=== PATIENT | male | born 1985 | race Caucasian/White ===

== ENCOUNTER → 2019-04-07 09:01 | Outpatient (CLI) | payer BC, SELFPAY ==
[2019-04-07 08:17] VITALS: BMI 25.8
[2019-04-07 11:32] LABS: Microalbumin:Creatinine Ratio 241.6 mg/g CRE (<30 mg/g CRE)
[2019-04-07 11:49] LABS: ALB/GLOB Ratio 1.3 RATIO (0.9-2.4); AST(SGOT) 23 U/L (15-37); Alanine Aminotransfer ALT/SGPT 37 U/L (16-61); Albumin, Serum 3.9 g/dL (3.2-5.0); Alkaline Phosphatase 73 U/L (45-117); Anion Gap 5 (5-15); BUN 12 mg/dL (7-18); BUN/Creat Ratio 15.9 RATIO (10-20); Calcium,Total 8.7 mg/dL (8.5-10.1); Chloride 106 mmol/L (98-107); Cholesterol 152 mg/dL (200); Creatinine, Serum 0.76 mg/dL (0.70-1.30); EST Glomerular Filtration Rate 128 mL/min (>60); Est Glom Filt Rate - Afr Amer 155 mL/min (>60); Globulin 3.1 g/dL (2.2-4.2); Glucose 218 mg/dL (74-106); High Density Lipoprotein 71 mg/dL; Sodium Level 138 mmol/L (136-145); Thyroid Stim Hormone (TSH) 1.75 uIU/mL (0.358-3.74); Triglycerides 48 mg/dL; Very Low Density Lipoprotein 10 mg/dL (5-40)
== END ==
LOC: LAB 09:07
PROVIDERS: Referring Provider Internal Medicine Endocrinology, Diabetes & Metabolism; Visit Provider Internal Medicine Endocrinology, Diabetes & Metabolism
DX: E11.9 Type 2 diabetes mellitus without complications (principal)
CPT/HCPCS: 36415; 80053; 80061; 82043; 82570; 84443

== ENCOUNTER → 2020-04-14 09:27 | Outpatient (CLI) | payer BC, SELFPAY ==
[2020-04-14 08:40] VITALS: BMI 23.6
[2020-04-14 12:39] LABS: Microalbumin:Creatinine Ratio 812.5 mg/g CRE (<30 mg/g CRE)
[2020-04-14 12:44] LABS: ALB/GLOB Ratio 1.3 RATIO (0.9-2.4); AST(SGOT) 18 U/L (15-37); Alanine Aminotransfer ALT/SGPT 32 U/L (16-61); Albumin, Serum 4.2 g/dL (3.2-5.0); Alkaline Phosphatase 85 U/L (45-117); Anion Gap 8 (5-15); BUN 15 mg/dL (7-18); Calcium,Total 9.6 mg/dL (8.5-10.1); Chloride 97 mmol/L (98-107); Cholesterol 200 mg/dL (200); Creatinine, Serum 0.94 mg/dL (0.70-1.30); EST Glomerular Filtration Rate 99 mL/min (>60); Est Glom Filt Rate - Afr Amer 120 mL/min (>60); Globulin 3.2 g/dL (2.2-4.2); Glucose 394 mg/dL (74-106); High Density Lipoprotein 68 mg/dL; Potassium 4.8 mmol/L (3.5-5.1); Protein, Total 7.4 g/dL (6.4-8.2); Sodium Level 132 mmol/L (136-145); Thyroid Stim Hormone (TSH) 1.14 uIU/mL (0.358-3.74); Triglycerides 169 mg/dL; Very Low Density Lipoprotein 34 mg/dL (5-40)
== END ==
PROVIDERS: Referring Provider Internal Medicine Endocrinology, Diabetes & Metabolism; Visit Provider Internal Medicine Endocrinology, Diabetes & Metabolism
DX: E10.9 Type 1 diabetes mellitus without complications (principal)
CPT/HCPCS: 36415; 80053; 80061; 82043; 82570; 84443

== ENCOUNTER 2021-06-23 15:30 | Outpatient (CLI) | payer BC, SELFPAY ==
[2021-06-23 16:43] LABS: Microalbumin:Creatinine Ratio 313.7 mg/g CRE (<30 mg/g CRE)
[2021-06-23 16:46] LABS: Vitamin D,25 Hydroxy 19.6 ng/mL
[2021-06-23 16:54] LABS: ALB/GLOB Ratio 1.4 RATIO (0.9-2.4); AST(SGOT) 12 U/L (15-37); Alanine Aminotransfer ALT/SGPT 27 U/L (16-61); Albumin, Serum 4.1 g/dL (3.2-5.0); Alkaline Phosphatase 73 U/L (45-117); Anion Gap 5 (5-15); BUN 8 mg/dL (7-18); BUN/Creat Ratio 10.3 RATIO (10-20); Calcium,Total 8.6 mg/dL (8.5-10.1); Chloride 105 mmol/L (98-107); Cholesterol 142 mg/dL (200); Creatinine, Serum 0.78 mg/dL (0.70-1.30); EST Glomerular Filtration Rate 121 mL/min (>60); Est Glom Filt Rate - Afr Amer 147 mL/min (>60); Globulin 2.9 g/dL (2.2-4.2); Glucose 252 mg/dL (74-106); High Density Lipoprotein 58 mg/dL; Potassium 3.5 mmol/L (3.5-5.1); Sodium Level 136 mmol/L (136-145); Triglycerides 49 mg/dL; Very Low Density Lipoprotein 10 mg/dL (5-40)
== END 2021-06-23 23:59 | disposition home or self-care (01) ==
PROVIDERS: Visit Provider Internal Medicine Endocrinology, Diabetes & Metabolism
DX: E10.65 Type 1 diabetes mellitus with hyperglycemia (principal); E55.9 Vitamin D deficiency, unspecified; Z96.41 Presence of insulin pump (external) (internal)
CPT/HCPCS: 36415; 80053; 80061; 82043; 82306; 82570; 84443

== ENCOUNTER → 2023-04-04 | Outpatient (CLI) | payer BC, SELFPAY ==
--- OUTSIDE RECORDS SUMMARY | 2023-04-04 16:08 | XMS RPT_ITS | CCD ---
Author Name Unknown Address [id number] [place] [address] Organization [facility] Care Team Providers Care Used Car Salesperson Name Role Phone VARINDER, GLYNN Unavailable Unavailable VARINDER, GLYNN Unavailable Unavailable [facility] Unavailable Unavailable VARINDER, GLYNN Unavailable Unavailable [facility] Unavailable Unavailable VARINDER, GLYNN Unavailable Unavailable VARINDER, GLYNN Unavailable Unavailable [facility] Unavailable Unavailable VARINDER, GLYNN Unavailable Unavailable VARINDER, GLYNN Unavailable Unavailable [facility] Unavailable Unavailable VARINDER, GLYNN Unavailable Unavailable VARINDER, GLYNN Unavailable Unavailable [facility] Unavailable Unavailable VARINDER, GLYNN Unavailable Unavailable VARINDER, GLYNN Unavailable Unavailable [facility] Unavailable Unavailable Hilary Barr DO Primary Care [facility] HILARY BARR Attending HILARY Long Primary Care HILARY Long Referring HILARY Long Primary Care HILARY Long Attending HILARY Long Primary Care FE Abreu Attending Unavailable FE MARC Primary Care Unavailable Fe Marc DO Primary Care Provider [phone] Allergies Allergy Classification Reported Allergen(s) Allergy Type Date of Onset Reaction(s) Facility (3 sources) egg (chicken) allergenic extract; Translations: [EGG EXTRACT] Drug Allergy 2 Other: See Comments [facility] (3 sources) Onion extract; Translations: [ONION] Drug Allergy 9 GI Upset, Diarrhea [facility] (1 source) Egg Allergy to substance 2 Unknown, Other [facility] (1 source) Onion extract Drug Allergy 9 Diarrhea, Nausea Only [facility] Medications Current Medications Medication Drug Class(es) Dates Sig (Normalized) Sig (Original) 12 hr buPROPion hydrochloride 150 mg extended release oral tablet (2 sources) Aminoketone Start: 02-19-2022 End: 05-20-2022 take 1 tablet by mouth twice daily buPROPion SR (WELLBUTRIN SR) 150 mg 12 hr tablet Indications: Smoker Take 1 tablet by mouth twice daily. 180 tablet 1 02/19/2022 05/20/2022 Active Completed/Discontinued Medications Medication Drug Class(es) Dates Sig (Normalized) Sig (Original) citalopram 40 mg oral tablet (5 sources) Serotonin Reuptake Inhibitor Start: 10-28-2017 take 1 tablet by mouth once daily citalopram (CELEXA) 40 mg tablet Indications: Type 1 diabetes mellitus with hyperglycemia, with long-term current use of insulin (HCC) Take 1 tablet by mouth once daily. 90 tablet 2 10/28/2017 Active Problems Active Problems Problem Classification Problem Date Documented Da te Episodic/Chronic Anxiety disorders (7 sources) Mixed anxiety and depressive disorder; Translations: [Other specified anxiety disorders] Onset: 02-07-2022 Chronic Diabetes mellitus with complications (9 sources) Type 1 diabetes mellitus; Translations: [Type 1 diabetes mellitus with hyperglycemia] Onset: 10-28-2017 10-28-2017 Chronic Mood disorders (4 sources) Depression; Translations: [Recurrent major depressive episodes, moderate ] Onset: 08-14-2022 Chronic Other hereditary and degenerative nervous system conditions (1 source) Restless legs syndrome; Translations: [Restless leg syndrome] Onset: 02-19-2022 Chronic Other hereditary and degenerative nervous system conditions (1 source) Restless legs; Translations: [Restless legs syndrome] Chronic Other nutritional; endocrine; and metabolic disorders (1 source) Overweight Onset: 10-28-2017 Chronic Other screening for suspected conditions (not mental disorders or infectious disease) (4 sources) Patient encounter status; Translations: [Encounter for screening for lipoid disorders] Onset: 01-30-2022 Episodic Substance-related disorders (3 sources) Nicotine dependence, unspecified, uncomplicated; Translations: [Smoker] Onset: 02-19-2022 Chronic Unclassified (1 source) Unknown / UNK(Unknown) Onset: 10-28-2017 Unclassified (2 sources) Annual Exam; Translations: [Annual Exam] Onset: 08-14-2022 Past or Other Problems Problem Classification Problem Date Documented Da te Episodic/Chronic Other nutritional; endocrine; and metabolic disorders (5 sources) Body mass index 25-29 - overweight; Translations: [Overweight] Onset: 10-28-2017 10-28-2017 Episodic Results Test Name Value Interpretation Reference Range Facil ity Vital Signs Date Time Vital Sign Value Performing Clinician Dacia woodall 08-14-2022 13:43-0400 Body height 172.7 cm Fe Marc Pull Work Phone: [email or web address] 08-14-2022 13:43-0400 Body mass index (BMI) [Ratio] 26.61 kg/m2 Fe Marc Pull Work Phone: [email or web address] 08-14-2022 13:43-0400 Body weight 79.38 kg Fe Marc Pull Work Phone: [email or web address] 08-14-2022 13:43-0400 Diastolic blood pressure 70 mm[Hg] Fegeorgia Marc DO Work Phone: [email or web address] 08-14-2022 13:43-0400 Heart rate 91 /min Fe Marc Pull Work Phone: [email or web address] 08-14-2022 13:43-0400 SaO2% (BldA) [Mass fraction] 97 % Fe Marc Pull Work Phone: [email or web address] 08-14-2022 13:43-0400 Systolic blood pressure 100 mm[Hg] Fe Marc Pull Work Phone: [facility] 02-19-2022 15:07-0500 Body height 172.7 cm TUNJI DO Work Phone: [facility] 02-19-2022 15:07-0500 Body temperature 98.4 [degF] ProZymerio DO Work Phone: [facility] 02-19-2022 15:07-0500 Body weight 76.2 kg Hilary Dick DO Work Phone: [facility] 02-19-2022 15:07-0500 Diastolic blood pressure 96 mm[Hg] ProZymerio DO Work Phone: [facility] 02-19-2022 15:07-0500 Heart rate 84 /min [place] Dick DO Work Phone: [facility] 02-19-2022 15:07-0500 SaO2% (BldA) [Mass fraction] 100 % [place] Dick DO Work Phone: [facility] 02-19-2022 15:07-0500 Systolic blood pressure 140 mm[Hg] [place] Dick DO Work Phone: [facility] 01-30-2022 10:53-0500 Body height 172.7 cm Hilary Dick DO Work Phone: [facility] 01-30-2022 10:53-0500 Body temperature 98.49 [degF] Hilary Dick DO Work Phone: [facility] 01-30-2022 10:53-0500 Body weight 76.66 kg Hilary Dick DO Work Phone: [facility] 01-30-2022 10:53-0500 Diastolic blood pressure 88 mm[Hg] [place] Dick DO Work Phone: [facility] 01-30-2022 10:53-0500 Heart rate 95 /min Hilary Dick DO Work Phone: [facility] 01-30-2022 10:53-0500 SaO2% (BldA) [Mass fraction] 100 % Hilary Dick DO Work Phone: [facility] 01-30-2022 10:53-0500 Systolic blood pressure 120 mm[Hg] [place] Dick DO Work Phone: [facility] Encounters Encounter Date Encounter Type Care Provider Facility Start: 08-14-2022 End: 08-14-2022 ambulatory [facility] Start: 08-14-2022 End: 08-14-2022 Office outpatient new 45 minutes Fe Marc DO Work Phone: [facility] Procedures Date Procedure Procedure Detail Performing Clinician Start: 09-22-2021 Hemoglobin A1c/Hemoglobin.total in Blood Glynn Hays MD Work Phone: Plan of Treatment Date Care Activity Detail Author Start: 09-12-2037 Zoster Vaccines (1 of 2) Zoster Vaccines (1 of 2) [facility] Start: 02-19-2023 ANNUAL PCP TEAM CHRONIC DISEASE VISIT ANNUAL PCP TEAM CHRONIC DISEASE VISIT [facility] Start: 02-13-2023 Depresssion Monitoring Depresssion Monitoring [facility] Start: 01-30-2023 ANNUAL PCP TEAM CHRONIC DISEASE VISIT ANNUAL PCP TEAM CHRONIC DISEASE VISIT [facility] Start: 01-30-2023 Hepatitis B surface antibody level LDL CHOLESTEROL [facility] Start: 11-09-2022 Influenza vaccination Influenza Vaccine (Season Ended) [facility] Start: 2022 End: 2022 Telemedicine consultation with patient 2022 3:30 PM EDT Telemedicine [facility] [address] [place] [phone] Fe Marc DO [address] [place] [address] [facility] Start: 03-25-2022 Hemoglobin A1c/Hemoglobin.total in Blood HBA1C [facility] Start: 02-27-2022 End: 04-29-2022 ALBUMIN/CREAT RATIO RND UR ALBUMIN/CREAT RATIO RND UR Lab Routine Type 1 diabetes mellitus with hyperglycemia, with long-term current use of insulin (HCC) Expected: 02/27/2022, Expires: 04/29/[address] [facility] Work Phone: Immunizations Immunization Date Immunization Notes Care Provider Fa cilirogelio 02-07-2017 influenza, injectabl e, quadrivalent, preservative free [place] Dick DO Work Phone: [facility] 02-07-2017 pneumococcal polysaccharide vaccine, 23 valent [place] Dick DO Work Phone: [facility] 02-07-2017 influenza virus vacc ine, unspecified formulation Fe Marc DO Work Phone: [facility] 11-16-2014 influenza, seasonal, injectable, preservative free Hilary Dick DO Work Phone: [facility] 03-11-2014 tetanus and diphther ia toxoids, adsorbed, preservative free, for adult use (2 Lf of tetanus toxoid and 2 Lf of diphtheria toxoid) Hilary Dick DO Work Phone: [facility] 01-21-2013 influenza, seasonal, injectable Hilary Dick DO Work Phone: [facility] 11-16-2011 influenza, seasonal, injectable [place] Dick DO Work Phone: [facility] 03-12-2001 hepatitis B vaccine, pediatric or pediatric/adolescent dosage Hilary Dick DO Work Phone: [facility] 10-11-2000 hepatitis B vaccine, pediatric or pediatric/adolescent dosage [place] Dick DO Work Phone: [facility] 09-09-2000 hepatitis B vaccine, pediatric or pediatric/adolescent dosage [place] Dick DO Work Phone: [facility] 09-09-2000 measles, mumps and rubella virus vaccine [place] Dick DO Work Phone: [facility] 10-04-1992 diphtheria, tetanus toxoids and acellular pertussis vaccine, unspecified [facility] 10-04-1992 trivalent poliovirus vaccine, live, [facility] Work [facility] 05-07-1989 haemophilus influenz ae type b vaccine, PRP-T conjugate [facility] DO Work Phone: [facility] 01-01-1989 diphtheria, tetanus toxoids and pertussis vaccine [place] Dick DO Work Phone: [facility] 01-01-1989 measles, mumps and rubella virus vaccine Hilary Dick DO Work Phone: [facility] 01-01-1989 trivalent poliovirus vaccine, live, oral [facility] Work Phone: [facility] 04-03-1988 diphtheria, tetanus toxoids and pertussis vaccine Hilary Dick DO Work Phone: [facility] 02-01-1988 diphtheria, tetanus toxoids and pertussis vaccine Hilary Dick DO Work Phone: [facility] 02-01-1988 trivalent poliovirus vaccine, live, oral Hilary Dick DO Work Phone: [facility] 1985 diphtheria, tetanus toxoids and pertussis vaccine Hilary Dick DO Work Phone: [facility] 1985 trivalent poliovirus vaccine, live, oral Hilary Dick DO Work Phone: [facility] Payers Date Payer Category Payer Private Health Insurance [id number] 2021 Private Health Insurance [id number] 1985 Unknown [id number] 1985 Unknown [id number] [id number] 1985 Unknown [id number] [id number] 1985 Unknown [id number] [id number] 1985 Unknown [id number] [id number] 1985 Unknown [id number] [id number] [id number] Unknown [id number] Social History Date Type Detail Facility Start: [facility] Start: 04-18-2001 History of tobacco use Cigarette Smo ker [facility] Start: 09-06-2021 End: 01-30-2022 Cigarettes smoked current (pack per day) - Reported 1.[address] [facility] Start: 01-30-2022 Tobacco use and exposure Smoke less tobacco non-user [facility] Start: 01-30-2022 Alcohol intake Ex-drinker (finding) [facility] Start: 01-30-2022 Alcohol Comment sober since 2019 [facility] Start: 1985 Sex Assigned At Not on file C [facility] Start: 01-20-2022 End: 08-14-2022 Exposure to SARS-CoV-2 (event) Not sure [facility] Start: 08-14-2022 Alcohol intake Lifetime non-d lisa (finding) [facility] Start: 09-06-2021 Tobacco use panel [facility] Medical Equipment Procedure Code Equipment Code Equipment Origin al Text Equipment Identifier Dates Start: 10-28-2017 End: 01-30-2022 Clinical Notes 05-13-2020 to 08-14-2022 Fe Marc, DO - 08/14/2022 2:00 PM EDTFmiguel a Barr, DO - 02/19/2022 3:11 PM ESTTelephone Encounter - Christine Garcia LPN - 02/08/2022 10:02 AM EST Note Date & Type Note Facility 08-14-2022 History of Presen t illness Narrative Images from the original note were not included. [facility] [phone] Visit type: New Patient Reason for Visit: Annual Exam (Pt very upset with previous pcp for giving to many meds for depression ) and Depression Assessment and Plan Diagnoses and all orders for this visit: Moderate episode of recurrent major depressive disorder (HCC) - escitalopram (Lexapro) 10 MG tablet; Take 1 tablet (10 mg) by mouth daily. Depression is not well controlled. We will switch back to Lexapro 10 mg daily. Might need to consider adding Abilify back as well. We will do this 1 medication at a time. He will follow-up with me in 4 weeks. No follow-ups on file. Subjective HPI He was seeing psych - lost insurance, started seeing Dick Started on prozac and wellbutrin Prozac was increased to 40 mg Then started on wellbutrin to help him quit smoking He is sleeping all of the time. Having nightmares. His says he is twitching in his sleep Works at [employer] Sold his house and moved in his mom - she has stage 4 CKD and MM, dementia, DM His most recent A1c is down 6.9 Hasn't had an eye exam Review of Systems Constitutional: Positive for fatigue. Negative for appetite change, chills and fever. Psychiatric/Behavioral: Positive for dysphoric mood. Negative for confusion, decreased concentration and sleep disturbance. The patient is not nervous/anxious. Allergies Allergen Reactions Egg Solids, Whole Unknown and Other Onion Diarrhea and Nausea Only Outpatient Medications Prior to Visit Medication Sig Dispense Refill insulin aspart (NovoLOG, Fiasp) 100 UNIT/ML patient supplied pump Inject under the skin continuous. FLUoxetine (PROzac) 40 MG capsule Take by mouth. FLUoxetine (PROzac) 20 MG capsule TAKE 1 CAPSULE BY MOUTH ONCE DAILY FOR 7 DAYS, THEN TAKE 2 CAPSULES ONCE DAILY Nirmatrelvir&Ritonavir 300/100 (Paxlovid) 20 x 150 MG & 10 x 100MG tablet therapy pack TAKE 3 TABLETS (TWO 150 MG NIRMATRELVIR AND ONE 100 MG RITONAVOR TABLETS) BY MOUTH EVERY 12 HOURS FOR 5 DAYS [YELLOW HALF=AM, BLUE HALF=PM] 30 each 0 No facility-administered medications prior to visit. Past Medical History: Diagnosis Date CHF (congestive heart failure) ([facility] ([facility]) Depression Social History Socioeconomic History Marital status: Tobacco Use Smoking status: Every Day Packs/day: 1.00 Types: Cigarettes Smokeless tobacco: Never Vaping Use Vaping Use: Never used Substance and Sexual Activity Alcohol use: Never Drug use: Never History reviewed. No pertinent surgical history. History reviewed. No pertinent surgical history. Family History Problem Relation Name Age of Onset Diabetes Mother Multiple myeloma Mother Kidney failure Mother No Known Problems Father Objective BP 100/70 Pulse 91 Ht 5' 8 (1.727 m) Wt 175 lb (79.4 kg) SpO2 97% BMI 26.61 kg/m Physical Exam Vitals and nursing note reviewed. Constitutional: General: He is not in acute distress. Appearance: Normal appearance. He is not ill-appearing. HENT: Head: Normocephalic and atraumatic. Right Ear: Tympanic membrane, ear canal and external ear normal. Left Ear: Tympanic membrane, ear canal and external ear normal. Nose: Nose normal. Mouth/Throat: Mouth: Mucous membranes are dry. Eyes: General: No scleral icterus. Right eye: No discharge. Left eye: No discharge. Extraocular Movements: Extraocular movements intact. Conjunctiva/sclera: Conjunctivae normal. Cardiovascular: Rate and Rhythm: Normal rate and regular rhythm. Pulses: Normal pulses. Heart sounds: Normal heart sounds. No murmur heard. No gallop. Pulmonary: Effort: Pulmonary effort is normal. No respiratory distress. Breath sounds: Normal breath sounds. No stridor. No wheezing, rhonchi or rales. Chest: Chest wall: No tenderness. Abdominal: General: Abdomen is flat. Bowel sounds are normal. There is no distension. Palpations: Abdomen is soft. There is no mass. Tenderness: There is no abdominal tenderness. There is no right CVA tenderness, left CVA tenderness, guarding or rebound. Hernia: No hernia is present. Musculoskeletal: General: Normal range of motion. Cervical back: Normal range of motion and neck supple. Right lower leg: No edema. Left lower leg: No edema. Skin: General: Skin is warm and dry. Findings: No rash. Neurological: General: No focal deficit present. Mental Status: He is alert and oriented to person, place, and time. Mental status is at baseline. Psychiatric: Mood and Affect: Mood normal. Behavior: Behavior normal. Thought Content: Thought content normal. Judgment: Judgment normal. Data Reviewed POCT: Labs: Imaging/Testing: Chart Clean Up: Medications Discontinued During This Encounter Medication Reason FLUoxetine (PROzac) 20 MG capsule Entered in error Nirmatrelvir&Ritonavir 300/100 (Paxlovid) 20 x 150 MG & 10 x 100MG tablet therapy pack Med list cleanup FLUoxetine (PROzac) 40 MG capsule Fe Marc DO 08/14/2022 3:44 PM documented in this encounter [facility] 02-27-2022 Note Patient Outreach ([facility] NYA CORDERO ([id number]) 1985 M Date Time Provider Department 02/27/22 HILARY BARR [facility] During your visit today, we recorded the following information about you: Allergies As of Date: 02/27/2022 Noted Allergy Reaction EGG EXTRACT 03/28/2021 14 - Other: See Comments ONION 01/06/2019 8 - GI Upset 6 - Diarrhea Date Reviewed: 02/19/2022 Reviewed by: Christine Garcia LPN - Fully Assessed Visit Diagnosis:Type 1 diabetes mellitus with hyperglycemia, with long-term current use of insulin (HCC) [E10.65] Order(s):ALBUMIN/CREAT RATIO RND UR [SQUACR] Order #: [id number] FUTURE HGB A1C [[id number]] Order #: [id number] FUTURE SCHEDULE LAB TESTING [[id number]] Order #: [id number] FUTURE Prescriptions as of 03/02/2022 - buPROPion SR (WELLBUTRIN SR) 150 mg 12 hr tablet Take 1 tablet by mouth twice daily. - rOPINIRole (REQUIP) 1 mg tablet Take 1 tablet by mouth daily at bedtime. - FLUoxetine (PROZAC) 40 mg capsule Take 1 capsule by mouth once daily. - FLUoxetine (PROZAC) 20 mg capsule Take 1 capsule by mouth once daily for 7 days, THEN 2 capsules once daily. - insulin glargine (LANTUS SOLOSTAR U-100 INSULIN) 100 unit/mL (3 mL) inpn Inject 30 Units subcutaneously once daily. - insulin lispro (HUMALOG KWIKPEN INSULIN) 200 unit/mL (3 mL) injection Patient injecting TID with meals, on sliding scale, max daily dose 50 units - escitalopram oxalate (LEXAPRO) 20 mg tablet Take 20 mg by mouth once daily. - flash glucose scanning reader (FREESTYLE ADELAIDA 14 DAY READER) [facility] Use as directed - flash glucose sensor (FREESTYLE ADELAIDA 14 DAY SENSOR) kit Use every 2 weeks as instructed - blood sugar diagnostic (ONETOUCH VERIO) test strip Test 4 times daily - citalopram (CELEXA) 40 mg tablet Take 1 tablet by mouth once daily. - Insulin [place], Disposable, (BD ULTRA-FINE ALEKSANDRA PEN NEEDLE) 32 gauge x 5/32 ndle 1 Each four times daily. Problem List As Of Date 02/27/2022 Noted Resolved Type 1 diabetes mellitus with hyperglycemia, wi* Overweight (BMI 25.0-29.9) [E66.3] 10/28/2017 Anxiety with depression [F41.8] 02/07/2022 Encounter Status:Closed by FERNANDO, PRODUSER on 03/02/22 [facility] 02-19-2022 Note HNO ID: [id number] Author: Hilary Barr DO Service: ? Author Type: Physician Type: Progress Notes Filed: 03/07/2022 6:21 PM Note Text: [facility] Sally Barr DO [address] [place] [address] Date of Evaluation: 02/19/2022 Patient Name: Nya Cordero : 1985 Chief Complaint: Patient presents with: Results: Blood work Anxiety: Follow up after taking prozac Nursing Intake: There are no exam notes on file for this visit. Subjective Mr. Cordero is a 36 year old male who presents with the following complaint(s): The history is provided by the patient. No russian language professor was used. Anxiety Pertinent negatives include no weakness. This is a chronic problem. The problem is unchanged. Treatments tried: prozac. The treatment provided mild relief. Review of Systems Constitutional: Negative for fatigue and unexpected weight change. HENT: Negative for nosebleeds. Eyes: Negative for redness and visual disturbance. Respiratory: Negative for apnea, cough and shortness of breath. Cardiovascular: Negative for chest pain, palpitations and leg swelling. Genitourinary: Negative for hematuria. Neurological: Negative for dizziness, weakness, light-headedness, numbness and headaches. Hematological: Does not bruise/bleed easily. Psychiatric/Behavioral: The patient is nervous/anxious. PAST MEDICAL HISTORY Diagnosis Date Diabetes 1.5, managed as type 1 (HCC) PAST SURGICAL HISTORY Procedure Laterality Date ADENOIDECTOMY SECONDARY AGE 14/> FAMILY HISTORY Problem Relation Age of Onset Diabetes Mother other (multiple myeloma) Mother No Known Problems Father Leukemia Brother COPD Maternal Grandmother Heart disease Maternal Grandmother No Known Problems Paternal Grandmother No Known Problems Paternal Grandfather Social History Tobacco Use Smoking status: Every Day Packs/day: 1.50 Types: Cigarettes Start date: 04/18/2001 Smokeless tobacco: Never Vaping Use Vaping Use: Never used Substance Use Topics Alcohol use: Not Currently Alcohol/week: 12.5 standard drinks Types: 3 Shots of liquor, 7 Standard drinks or equivalent, 3 Glasses of Wine (5oz) per week Comment: sober since 2019 Drug use: Never Current Outpatient Medications Medication Sig Dispense Refill FLUoxetine (PROZAC) 20 mg capsule Take 1 capsule by mouth once daily for 7 days, THEN 2 capsules once daily. 67 capsule 5 insulin lispro (HUMALOG KWIKPEN INSULIN) 200 unit/mL (3 mL) injection Patient injecting TID with meals, on sliding scale, max daily dose 50 units (Patient taking differently: Insulin pump. Sees endo) 12 Pen 1 insulin glargine (LANTUS SOLOSTAR U-100 INSULIN) 100 unit/mL (3 mL) inpn Inject 30 Units subcutaneously once daily. (Patient not taking: No sig reported) 10 Pen 1 escitalopram oxalate (LEXAPRO) 20 mg tablet Take 20 mg by mouth once daily. (Patient not taking: No sig reported) flash glucose scanning reader (FREESTYLE ADELAIDA 14 DAY READER) misc Use as directed (Patient not taking: No sig reported) 1 Each 0 flash glucose sensor (FREESTYLE ADELAIDA 14 DAY SENSOR) kit Use every 2 weeks as instructed (Patient not taking: No sig reported) 2 Kit 5 blood sugar diagnostic (ONETOUCH VERIO) test strip Test 4 times daily (Patient not taking: No sig reported) 150 Strip 5 citalopram (CELEXA) 40 mg tablet Take 1 tablet by mouth once daily. (Patient not taking: No sig reported) 90 tablet 2 Insulin [place], Disposable, (BD ULTRA-FINE ALEKSANDRA PEN NEEDLE) 32 gauge x 5/32 ndle 1 Each four times daily. 400 Each 2 No current facility-administered medications for this visit. I have confirmed and edited as necessary the past medical, family and social histories, HPI, and ROS obtained by others. Objective BP 140/96 Pulse 84 Temp 98.4 Ht 5' 8 (1.73m) Wt 168 lb (76.2kg) SpO2 100% BMI 25.55 kg/(m2). Physical Exam Vitals and nursing note reviewed. Constitutional: General: He is not in acute distress. Appearance: Normal appearance. He is well-developed. He is not ill-appearing. HENT: Head: Normocephalic. Right Ear: Tympanic membrane, ear canal and external ear normal. There is no impacted cerumen. Left Ear: Tympanic membrane, ear canal and external ear normal. There is no impacted cerumen. Nose: Nose normal. Mouth/Throat: Mouth: Mucous membranes are moist. Pharynx: Oropharynx is clear. Uvula midline. No oropharyngeal exudate or posterior oropharyngeal erythema. Eyes: General: Lids are normal. Vision grossly intact. Gaze aligned appropriately. No scleral icterus. Right eye: No discharge. Left eye: No discharge. Extraocular Movements: Extraocular movements intact. Conjunctiva/sclera: Conjunctivae normal. Pupils: Pupils are equal, round, and reactive to light. Neck: Thyroid: No thyroid mass, thyromegaly or thyroid (more content not included)... [facility] 02-19-2022 History of Presen t illness Narrative Images from the original note were not included. [facility] [address] [place] [address] Date of Evaluation: 02/19/2022 Patient Name: Nya Cordero : 1985 Chief Complaint: Patient presents with: Results: Blood work Anxiety: Follow up after taking prozac Nursing Intake: There are no exam notes on file for this visit. Subjective Mr. Cordero is a 36 year old male who presents with the following complaint(s): The history is provided by the patient. No russian language professor was used. Anxiety Pertinent negatives include no weakness. This is a chronic problem. The problem is unchanged. Treatments tried: prozac. The treatment provided mild relief. Review of Systems Constitutional: Negative for fatigue and unexpected weight change. HENT: Negative for nosebleeds. Eyes: Negative for redness and visual disturbance. Respiratory: Negative for apnea, cough and shortness of breath. Cardiovascular: Negative for chest pain, palpitations and leg swelling. Genitourinary: Negative for hematuria. Neurological: Negative for dizziness, weakness, light-headedness, numbness and headaches. Hematological: Does not bruise/bleed easily. Psychiatric/Behavioral: The patient is nervous/anxious. PAST MEDICAL HISTORY Diagnosis Date Diabetes 1.5, managed as type 1 (HCC) PAST SURGICAL HISTORY Procedure Laterality Date ADENOIDECTOMY SECONDARY AGE 14/> FAMILY HISTORY Problem Relation Age of Onset Diabetes Mother other (multiple myeloma) Mother No Known Problems Father Leukemia Brother COPD Maternal Grandmother Heart disease Maternal Grandmother No Known Problems Paternal Grandmother No Known Problems Paternal Grandfather Social History Tobacco Use Smoking status: Every Day Packs/day: 1.50 Types: Cigarettes Start date: 04/18/2001 Smokeless tobacco: Never Vaping Use Vaping Use: Never used Substance Use Topics Alcohol use: Not Currently Alcohol/week: 12.5 standard drinks Types: 3 Shots of liquor, 7 Standard drinks or equivalent, 3 Glasses of Wine (5oz) per week Comment: sober since 2019 Drug use: Never Current Outpatient Medications Medication Sig Dispense Refill FLUoxetine (PROZAC) 20 mg capsule Take 1 capsule by mouth once daily for 7 days, THEN 2 capsules once daily. 67 capsule 5 insulin lispro (HUMALOG KWIKPEN INSULIN) 200 unit/mL (3 mL) injection Patient injecting TID with meals, on sliding scale, max daily dose 50 units (Patient taking differently: Insulin pump. Sees endo) 12 Pen 1 insulin glargine (LANTUS SOLOSTAR U-100 INSULIN) 100 unit/mL (3 mL) inpn Inject 30 Units subcutaneously once daily. (Patient not taking: No sig reported) 10 Pen 1 escitalopram oxalate (LEXAPRO) 20 mg tablet Take 20 mg by mouth once daily. (Patient not taking: No sig reported) flash glucose scanning reader (FREESTYLE ADELAIDA 14 DAY READER) misc Use as directed (Patient not taking: No sig reported) 1 Each 0 flash glucose sensor (FREESTYLE ADELAIDA 14 DAY SENSOR) kit Use every 2 weeks as instructed (Patient not taking: No sig reported) 2 Kit 5 blood sugar diagnostic (ONETOUCH VERIO) test strip Test 4 times daily (Patient not taking: No sig reported) 150 Strip 5 citalopram (CELEXA) 40 mg tablet Take 1 tablet by mouth once daily. (Patient not taking: No sig reported) 90 tablet 2 Insulin [place], Disposable, (BD ULTRA-FINE ALEKSANDRA PEN NEEDLE) 32 gauge x 5/32 ndle 1 Each four times daily. 400 Each 2 No current facility-administered medications for this visit. I have confirmed and edited as necessary the past medical, family and social histories, HPI, and ROS obtained by others. Objective BP 140/96 Pulse 84 Temp 98.4 Ht 5' 8 (1.73m) Wt 168 lb (76.2kg) SpO2 100% BMI 25.55 kg/(m^2). Physical Exam Vitals and nursing note reviewed. Constitutional: General: He is not in acute distress. Appearance: Normal appearance. He is well-developed. He is not ill-appearing. HENT: Head: Normocephalic. Right Ear: Tympanic membrane, ear canal and external ear normal. There is no impacted cerumen. Left Ear: Tympanic membrane, ear canal and external ear normal. There is no impacted cerumen. Nose: Nose normal. Mouth/Throat: Mouth: Mucous membranes are moist. Pharynx: Oropharynx is clear. Uvula midline. No oropharyngeal exudate or posterior oropharyngeal erythema. Eyes: General: Lids are normal. Vision grossly intact. Gaze aligned appropriately. No scleral icterus. Right eye: No discharge. Left eye: No discharge. Extraocular Movements: Extraocular movements intact. Conjunctiva/sclera: Conjunctivae normal. Pupils: Pupils are equal, round, and reactive to light. Neck: Thyroid: No thyroid mass, thyromegaly or thyroid tenderness. Vascular: No carotid bruit. Trachea: Trachea and phonation normal. Cardiovascular: Rate and Rhythm: Normal rate and regular rhythm. Pulses: Normal pulses. Heart sounds: Normal heart sounds. Pulmonary: Effort: Pulmonary effort is normal. Breath sounds: Normal breath sounds. Abdominal: General: Abdomen is flat. Bowel sounds are normal. Palpations: Abdomen is soft. Musculoskeletal: General: Normal range of motion. Right shoulder: Normal. Left shoulder: Normal. Cervical back: Normal, full passive range of motion without pain and neck supple. No tenderness. No spinous process tenderness. Thoracic back: Normal. Lumbar back: Normal. Right knee: Normal. Left knee: Normal. Right lower leg: No edema. Left lower leg: No edema. Lymphadenopathy: Cervical: No cervical adenopathy. Skin: General: Skin is warm and dry. Neurological: General: No focal deficit present. Mental Status: He is alert and oriented to person, place, and time. Mental status is at baseline. Sensory: Sensation is intact. Motor: Motor function is intact. Psychiatric: Attention and Perception: Attention and perception normal. Mood and Affect: Mood normal. Speech: Speech normal. Behavior: Behavior normal. Thought Content: Thought content normal. Judgment: Judgment normal. Data Reviewed: Most recent labs ASSESSMENT/PLAN: 1. Anxiety with depression - ICD9: 300.4, ICD10: F41.8 (primary diagnosis) - Increase Fluoxetine - FLUOXETINE 40 MG CAPSULE 2. Type 1 diabetes mellitus with hyperglycemia, with long-term current use of insulin (HCC) - ICD9: 250.01, 790.29, ICD10: E10.65 - Managed by Endocrinology 3. Smoker - ICD9: 305.1, ICD10: F17.200 - Cessation encouraged. - Prescription for bupropion (Wellbutrin) given - BUPROPION HCL SR 150 MG TABLET,12 HR SUSTAINED-RELEASE 4. Restless leg syndrome - ICD9: 333.94, ICD10: G25.81 - Start Requip - ROPINIROLE 1 MG TABLET Return in about 3 weeks (around 03/12/2022). Hilary Barr DO Attestation: Scribe Statement: Kina Dorsey am scribing for, and in the presence of, Hilary Barr DO February 19, 2022 3:32 PM. Physician Statement: I, Hilary Barr DO, personally performed the services described in the documentation, as scribed by Jamee Dorsey in my presence, and it is both accurate and complete February 19, 2022 3:38 PM. documented in this encounter [facility] 02-08-2022 Miscellaneous Notes Formattin g of this note might be different from the original. 3rd attempt, tried cell phone number, said mailbox is full. Please mail letter to patient to have him call the office. Thank you. 2nd attempt, left message to call. Left message to call ----- Message from Hilary Barr DO sent at 02/06/2022 9:32 AM EST ----- Glucose too high increase lantus 2 units every night until fasting 130 and stop at that dose. Or see me and we will review. Recheck with glucose diary 7-10 days documented in this encounter [facility] 01-30-2022 Note HNO ID: [id number] Author: Hilary Barr DO Service: ? Author Type: Physician Type: Progress Notes Filed: 02/07/2022 6:16 PM Note Text: [facility] [place] Barr DO [address] [place] [address] Date of Evaluation: 01/30/2022 Patient Name: Nya Cordero : 1985 Chief Complaint: Patient presents with: Depression Anxiety New Patient review depression screening Nursing Intake: There are no exam notes on file for this visit. Subjective Mr. Cordero is a 36 year old male who presents with the following complaint(s): The history is provided by the patient. No russian language professor was used. Depression Pertinent negatives include no weakness. This is a chronic problem. The problem has been gradually worsening since onset. Anxiety Pertinent negatives include no weakness. This is a chronic problem. The problem has been gradually worsening since onset. Treatments tried: Lexapro. The treatment provided no relief. Review of Systems Constitutional: Negative for fatigue and unexpected weight change. HENT: Negative for nosebleeds. Eyes: Negative for redness and visual disturbance. Respiratory: Negative for apnea, cough and shortness of breath. Cardiovascular: Negative for chest pain, palpitations and leg swelling. Genitourinary: Negative for hematuria. Neurological: Negative for dizziness, weakness, light-headedness, numbness and headaches. Hematological: Does not bruise/bleed easily. Psychiatric/Behavioral: Positive for depression and dysphoric mood. The patient is nervous/anxious. PAST MEDICAL HISTORY Diagnosis Date Diabetes 1.5, managed as type 1 (HCC) PAST SURGICAL HISTORY Procedure Laterality Date ADENOIDECTOMY SECONDARY AGE 14/> FAMILY HISTORY Problem Relation Age of Onset Diabetes Mother other (multiple myeloma) Mother No Known Problems Father Leukemia Brother COPD Maternal Grandmother Heart disease Maternal Grandmother No Known Problems Paternal Grandmother No Known Problems Paternal Grandfather Social History Tobacco Use Smoking status: Every Day Packs/day: 1.50 Types: Cigarettes Start date: 04/18/2001 Smokeless tobacco: Never Vaping Use Vaping Use: Never used Substance Use Topics Alcohol use: Not Currently Alcohol/week: 12.5 standard drinks Types: 3 Shots of liquor, 7 Standard drinks or equivalent, 3 Glasses of Wine (5oz) per week Comment: sober since 2019 Drug use: Never Current Outpatient Medications Medication Sig Dispense Refill insulin lispro (HUMALOG KWIKPEN INSULIN) 200 unit/mL (3 mL) injection Patient injecting TID with meals, on sliding scale, max daily dose 50 units (Patient taking differently: Insulin pump. Sees endo) 12 Pen 1 FLUoxetine (PROZAC) 20 mg capsule Take 1 capsule by mouth once daily for 7 days, THEN 2 capsules once daily. 67 capsule 5 insulin glargine (LANTUS SOLOSTAR U-100 INSULIN) 100 unit/mL (3 mL) inpn Inject 30 Units subcutaneously once daily. (Patient not taking: Reported on 01/30/2022) 10 Pen 1 escitalopram oxalate (LEXAPRO) 20 mg tablet Take 20 mg by mouth once daily. (Patient not taking: Reported on 01/30/2022) flash glucose scanning reader (FREESTYLE ADELAIDA 14 DAY READER) misc Use as directed (Patient not taking: Reported on 01/30/2022) 1 Each 0 flash glucose sensor (FREESTYLE ADELAIDA 14 DAY SENSOR) kit Use every 2 weeks as instructed (Patient not taking: Reported on 01/30/2022) 2 Kit 5 blood sugar diagnostic (ONETOUCH VERIO) test strip Test 4 times daily (Patient not taking: Reported on 01/30/2022) 150 Strip 5 citalopram (CELEXA) 40 mg tablet Take 1 tablet by mouth once daily. (Patient not taking: No sig reported) 90 tablet 2 Insulin [place], Disposable, (BD ULTRA-FINE ALEKSANDRA PEN NEEDLE) 32 gauge x 5/32 ndle 1 Each four times daily. (Patient not taking: Reported on 01/30/2022) 400 Each 2 No current facility-administered medications for this visit. I have confirmed and edited as necessary the past medical, family and social histories, HPI, and ROS obtained by others. Objective BP 120/88 Pulse 95 Temp 98.5 Ht 5' 8 (1.73m) Wt 169 lb (76.7kg) SpO2 100% BMI 25.70 kg/(m2). Physical Exam Vitals and nursing note reviewed. Constitutional: General: He is not in acute distress. Appearance: Normal appearance. He is well-developed. He is not ill-appearing. HENT: Head: Normocephalic. Right Ear: Tympanic membrane, ear canal and external ear normal. There is no impacted cerumen. Left Ear: Tympanic membrane, ear canal and external ear normal. There is no impacted cerumen. Nose: Nose normal. Mouth/Throat: Mouth: Mucous membranes are moist. Pharynx: Oropharynx is clear. Uvula midline. No oropharyngeal exudate or posterior oropharyngeal erythema. Eyes: General: Lids are normal. Vision grossly intact. Gaze aligned appr (more content not included)... [facility] 01-30-2022 History of Presen t illness Narrative Images from the original note were not included. [facility] [address] [place] [address] Date of Evaluation: 01/30/2022 Patient Name: Nya Cordero : 1985 Chief Complaint: Patient presents with: Depression Anxiety New Patient review depression screening Nursing Intake: There are no exam notes on file for this visit. Subjective Mr. Cordero is a 36 year old male who presents with the following complaint(s): The history is provided by the patient. No russian language professor was used. Depression Pertinent negatives include no weakness. This is a chronic problem. The problem has been gradually worsening since onset. Anxiety Pertinent negatives include no weakness. This is a chronic problem. The problem has been gradually worsening since onset. Treatments tried: Lexapro. The treatment provided no relief. Review of Systems Constitutional: Negative for fatigue and unexpected weight change. HENT: Negative for nosebleeds. Eyes: Negative for redness and visual disturbance. Respiratory: Negative for apnea, cough and shortness of breath. Cardiovascular: Negative for chest pain, palpitations and leg swelling. Genitourinary: Negative for hematuria. Neurological: Negative for dizziness, weakness, light-headedness, numbness and headaches. Hematological: Does not bruise/bleed easily. Psychiatric/Behavioral: Positive for depression and dysphoric mood. The patient is nervous/anxious. PAST MEDICAL HISTORY Diagnosis Date Diabetes 1.5, managed as type 1 (HCC) PAST SURGICAL HISTORY Procedure Laterality Date ADENOIDECTOMY SECONDARY AGE 14/> FAMILY HISTORY Problem Relation Age of Onset Diabetes Mother other (multiple myeloma) Mother No Known Problems Father Leukemia Brother COPD Maternal Grandmother Heart disease Maternal Grandmother No Known Problems Paternal Grandmother No Known Problems Paternal Grandfather Social History Tobacco Use Smoking status: Every Day Packs/day: 1.50 Types: Cigarettes Start date: 04/18/2001 Smokeless tobacco: Never Vaping Use Vaping Use: Never used Substance Use Topics Alcohol use: Not Currently Alcohol/week: 12.5 standard drinks Types: 3 Shots of liquor, 7 Standard drinks or equivalent, 3 Glasses of Wine (5oz) per week Comment: sober since 2019 Drug use: Never Current Outpatient Medications Medication Sig Dispense Refill insulin lispro (HUMALOG KWIKPEN INSULIN) 200 unit/mL (3 mL) injection Patient injecting TID with meals, on sliding scale, max daily dose 50 units (Patient taking differently: Insulin pump. Sees endo) 12 Pen 1 FLUoxetine (PROZAC) 20 mg capsule Take 1 capsule by mouth once daily for 7 days, THEN 2 capsules once daily. 67 capsule 5 insulin glargine (LANTUS SOLOSTAR U-100 INSULIN) 100 unit/mL (3 mL) inpn Inject 30 Units subcutaneously once daily. (Patient not taking: Reported on 01/30/2022) 10 Pen 1 escitalopram oxalate (LEXAPRO) 20 mg tablet Take 20 mg by mouth once daily. (Patient not taking: Reported on 01/30/2022) flash glucose scanning reader (FREESTYLE ADELAIDA 14 DAY READER) [facility] [place] as directed (Patient not taking: Reported on 01/30/2022) 1 Each 0 flash glucose sensor (FREESTYLE ADELAIDA 14 DAY SENSOR) kit Use every 2 weeks as instructed (Patient not taking: Reported on 01/30/2022) 2 Kit 5 blood sugar diagnostic (ONETOUCH VERIO) test strip Test 4 times daily (Patient not taking: Reported on 01/30/2022) 150 Strip 5 citalopram (CELEXA) 40 mg tablet Take 1 tablet by mouth once daily. (Patient not taking: No sig reported) 90 tablet 2 Insulin [place], Disposable, (BD ULTRA-FINE ALEKSANDRA PEN NEEDLE) 32 gauge x 5/32 ndle 1 Each four times daily. (Patient not taking: Reported on 01/30/2022) 400 Each 2 No current facility-administered medications for this visit. I have confirmed and edited as necessary the past medical, family and social histories, HPI, and ROS obtained by others. Objective BP 120/88 Pulse 95 Temp 98.5 Ht 5' 8 (1.73m) Wt 169 lb (76.7kg) SpO2 100% BMI 25.70 kg/(m^2). Physical Exam Vitals and nursing note reviewed. Constitutional: General: He is not in acute distress. Appearance: Normal appearance. He is well-developed. He is not ill-appearing. HENT: Head: Normocephalic. Right Ear: Tympanic membrane, ear canal and external ear normal. There is no impacted cerumen. Left Ear: Tympanic membrane, ear canal and external ear normal. There is no impacted cerumen. Nose: Nose normal. Mouth/Throat: Mouth: Mucous membranes are moist. Pharynx: Oropharynx is clear. Uvula midline. No oropharyngeal exudate or posterior oropharyngeal erythema. Eyes: General: Lids are normal. Vision grossly intact. Gaze aligned appropriately. No scleral icterus. Right eye: No discharge. Left eye: No discharge. Extraocular Movements: Extraocular movements intact. Conjunctiva/sclera: Conjunctivae normal. Pupils: Pupils are equal, round, and reactive to light. Neck: Thyroid: No thyroid mass, thyromegaly or thyroid tenderness. Vascular: No carotid bruit. Trachea: Trachea and phonation normal. Cardiovascular: Rate and Rhythm: Normal rate and regular rhythm. Pulses: Normal pulses. Heart sounds: Normal heart sounds. Pulmonary: Effort: Pulmonary effort is normal. Breath sounds: Normal breath sounds. Abdominal: General: Abdomen is flat. Bowel sounds are normal. Palpations: Abdomen is soft. Musculoskeletal: General: Normal range of motion. Right shoulder: Normal. Left shoulder: Normal. Cervical back: Normal, full passive range of motion without pain and neck supple. No tenderness. No spinous process tenderness. Thoracic back: Normal. Lumbar back: Normal. Right knee: Normal. Left knee: Normal. Right lower leg: No edema. Left lower leg: No edema. Lymphadenopathy: Cervical: No cervical adenopathy. Skin: General: Skin is warm and dry. Neurological: General: No focal deficit present. Mental Status: He is alert and oriented to person, place, and time. Mental status is at baseline. Sensory: Sensation is intact. Motor: Motor function is intact. Psychiatric: Attention and Perception: Attention and perception normal. Mood and Affect: Mood normal. Speech: Speech normal. Behavior: Behavior normal. Thought Content: Thought content normal. Judgment: Judgment normal. Data Reviewed: No new labs ASSESSMENT/PLAN: 1. Type 1 diabetes mellitus with hyperglycemia, with long-term current use of insulin (HCC) - ICD9: 250.01, 790.29, ICD10: E10.65 (primary diagnosis) - Managed by Endocrinology 2. Anxiety with depression - ICD9: 300.4, ICD10: F41.8 - Discontinue Lexapro - Start Fluoxetine - FLUOXETINE 20 MG CAPSULE 3. Screening for hyperlipidemia - ICD9: V77.91, ICD10: Z13.220 - CBC + DIFF - COMP METABOLIC PANEL - LIPID PANEL BASIC - URINALYSIS, WITH MICROSCOPIC 4. Screening for thyroid disorder - ICD9: V77.0, ICD10: Z13.29 - TSH BLD Return in about 6 weeks (around 03/13/2022) for medication follow up. Hilary Barr DO Attestation: Scribe Statement: Kina Dorsey am scribing for, and in the presence of, Hilary Barr DO January 30, 2022 11:15 AM. Physician Statement: IHilary DO, personally performed the services described in the documentation, as scribed by Jamee Dorsey in my presence, and it is both accurate and complete January 30, 2022 11:36 AM. documented in this encounter [facility] 05-13-2020 Note Patient Outreach ([place] [facility]) NYA CORDERO ([id number]) 1985 M Date Time Provider Department 05/13/20 WEATHERS, SALOMON SPEAR During your visit today, we recorded the following information about you: Allergies As of Date: 05/13/2020 (No Known Allergies) Date Reviewed: 11/06/2018 Reviewed by: Marian Schwartz - Fully Assessed Order(s):SARS-COVID VACCINE 1ST DOSE APPT [[id number]] Order #: [id number] FUTURE Prescriptions as of 05/13/2020 Sig: INSULIN GLARGINE (U-100) 100 * Inject 30 Units subcutaneousl* INSULIN LISPRO (U-200) 200 UN* Patient injecting TID with me* ESCITALOPRAM 20 MG TABLET Take 20 mg by mouth once matthew* FLASH GLUCOSE SCANNING READER Use as directed FLASH GLUCOSE SENSOR KIT Use every 2 weeks as instruct* ONETOUCH VERIO TEST STRIPS USE ONE STRIP TO CHECK GLUCOS* BLOOD SUGAR DIAGNOSTIC STRIPS Test 4 times daily CITALOPRAM 40 MG TABLET Take 1 tablet by mouth once d* Patient not taking: Reported on 11/06/2018 PEN NEEDLE, DIABETIC 32 GAUGE* 1 Each four times daily. Problem List As Of Date 05/13/2020 Noted Resolved Type 1 diabetes mellitus with hyperglycemia, wi* Overweight (BMI 25.0-29.9) [E66.3] 10/28/2017 Encounter Status:Closed by MARLA KING on 05/16/20 [facility] Diagnosis Type 1 diabetes mellitus with hyperglycemia, with long-term current use of insulin (HCC) documented in this encounter [facility] note* Diagnosis Anxiety with depression- Primary Type 1 diabetes mellitus with hyperglycemia, with long-term current use of insulin (HCC) Smoker Tobacco use disorder Restless leg syndrome Restless legs syndrome (RLS) documented in this encounter [facility] note* Diagnosis Moderate episode of recurrent major depressive disorder (HCC)- Primary documented in this encounter [facility] Purpose Family History No Family History Records FoundNo Family History Records FoundNo Family History Records FoundNo Family History Records FoundNo Family History Records FoundNo Family History Records Found Advance Directives No Advanced Directives Records FoundNo Advanced Directives Records FoundNo Advanced Directives Records FoundNo Advanced Directives Records FoundNo Advanced Directives Records FoundNo Advanced Directives Records Found Additional Source Comments (unrecognized sect ion and content) No Status Records FoundNo Status Records FoundNo Status Records FoundNo Status Records FoundNo Status Records FoundNo Status Records Found INFORMATION SOURCE (unrecogn ized section and content) DATE CREATED AUTHOR AUTHOR'S ORGANIZ ATION 10/17/2019 [facility] ([place] DATE CREATED AUTHOR AUTHOR'S ORGANIZ ATION 04/12/2021 [facility] DATE CREATED AUTHOR AUTHOR'S ORGANIZ ATION 09/07/2021 [facility] DATE CREATED AUTHOR AUTHOR'S ORGANIZ ATION 03/08/2022 [facility] DATE CREATED AUTHOR AUTHOR'S ORGANIZ ATION 08/19/2022 [facility] Source Comments (unrecognize d section and content) In the event this informatio n is protected by the Federal Confidentiality of Alcohol and Drug Abuse Patient Records regulations: The Federal rules restrict any use of the information to criminally investigate or prosecute any alcohol or drug abuse patient.[facility] the event this information is protected by the Federal Confidentiality of Alcohol and Drug Abuse Patient Records regulations: The Federal rules restrict any use of the information to criminally investigate or prosecute any alcohol or drug abuse patient.[facility] the event this information is protected by the Federal Confidentiality of Alcohol and Drug Abuse Patient Records regulations: The Federal rules restrict any use of the information to criminally investigate or prosecute any alcohol or drug abuse patient.[facility] HospitalIn the event this information is protected by the Federal Confidentiality of Alcohol and Drug Abuse Patient Records regulations: The Federal rules restrict any use of the information to criminally investigate or prosecute any alcohol or drug abuse patient.[facility] HospitalIn the event this information is protected by the Federal Confidentiality of Alcohol and Drug Abuse Patient Records regulations: The Federal rules restrict any use of the information to criminally investigate or prosecute any alcohol or drug abuse patient.[facility] Care Teams (unrecognized sec tion and content) Used Car Salesperson Relationship Specialty Start Date End Date Hilary Barr, DO [address] [place], [place] [id number] PCP - General Family Medicine 01/30/22 Used Car Salesperson Relationship Specialty Start Date End Date Hilary Barr DO [address] [place] [address] PCP - General Family Medicine 01/30/22 Used Car Salesperson Relationship Specialty Start Date End Date Hilary Barr, DO [address] [place], [place] [address] PCP - General Family Medicine 01/30/22 Used Car Salesperson Relationship Specialty Start Date End Date Hilary Barr, DO [address] [place] [address] PCP - General Family Medicine 01/30/22 Used Car Salesperson Relationship Specialty Start Date End Date Fe Marc DO [address] [place] [address] PCP - General Internal Medicine 08/14/22 Reason for Visit (unrecogniz ed section and content) Reason Comments Results Letter to be mailed Reason Comments Results Blood work Anxiety Follow up after taki ng prozac Reason Comments Annual Exam Pt very upset with p [facility] pcp for giving to many meds for depression Depression FOR RECORDS PERTAINING TO PATIENTS WHO ARE OR HAVE BEEN ENROLLED IN A CHEMICAL DEPENDENCY/SUBSTANCEABUSE PROGRAM, SOME INFORMATION MAY BE OMITTED. This clinical summary was aggregated from multiple sources. Caution should be exercised in using it in the provision of clinical care. This summary normalizes information from multiple sources, and as a consequence, information in this document may materially change the coding, format and clinical context of patient data. In addition, data may be omitted in some cases. CLINICAL DECISIONS SHOULD BE BASED ON THE PRIMARY CLINICAL RECORDS. [email or web address] provides no warranty or guarantee of the accuracy or completeness of information in this document.
[2023-04-04 16:59] LABS: Microalbumin:Creatinine Ratio 471.8 mg/g CRE (<30 mg/g CRE)
[2023-04-04 17:12] LABS: ALB/GLOB Ratio 1.1 RATIO (0.9-2.4); AST(SGOT) 19 U/L (15-37); Alanine Aminotransfer ALT/SGPT 43 U/L (16-61); Albumin, Serum 3.8 g/dL (3.2-5.0); Alkaline Phosphatase 83 U/L (45-117); Anion Gap 4 (5-15); BUN 15 mg/dL (7-18); BUN/Creat Ratio 15.9 RATIO (10-20); Calcium,Total 9.6 mg/dL (8.5-10.1); Chloride 107 mmol/L (98-107); Cholesterol 172 mg/dL (200); Creatinine, Serum 0.94 mg/dL (0.70-1.30); EST Glomerular Filtration Rate 96 mL/min (>60); Est Glom Filt Rate - Afr Amer 117 mL/min (>60); Globulin 3.4 g/dL (2.2-4.2); Glucose 168 mg/dL (74-106); High Density Lipoprotein 65 mg/dL; Potassium 4.2 mmol/L (3.5-5.1); Protein, Total 7.2 g/dL (6.4-8.2); Sodium Level 140 mmol/L (136-145); Thyroid Stim Hormone (TSH) 2.12 uIU/mL (0.358-3.74); Triglycerides 72 mg/dL; Very Low Density Lipoprotein 14 mg/dL (5-40)
== END | disposition home or self-care (01) ==
LOC: LAB 15:50
PROVIDERS: Referring Provider Internal Medicine Endocrinology, Diabetes & Metabolism; Visit Provider Internal Medicine Endocrinology, Diabetes & Metabolism
DX: E10.9 Type 1 diabetes mellitus without complications (principal); Z96.41 Presence of insulin pump (external) (internal)
CPT/HCPCS: 36415; 80053; 80061; 82043; 82570; 84443

== ENCOUNTER → 2024-01-06 | Outpatient (CLI) | payer BC, SELFPAY ==
[2024-01-06 17:00] LABS: Microalbumin:Creatinine Ratio 439.2 mg/g CRE (<30 mg/g CRE)
[2024-01-06 17:28] LABS: ALB/GLOB Ratio 1.2 RATIO (0.9-2.4); AST(SGOT) 16 U/L (15-37); Alanine Aminotransfer ALT/SGPT 33 U/L (16-61); Albumin, Serum 3.8 g/dL (3.2-5.0); Alkaline Phosphatase 74 U/L (45-117); Anion Gap 2 (5-15); BUN 12 mg/dL (7-18); BUN/Creat Ratio 13.5 RATIO (10-20); Calcium,Total 9.1 mg/dL (8.5-10.1); Chloride 110 mmol/L (98-107); Cholesterol 144 mg/dL (200); Creatinine, Serum 0.89 mg/dL (0.70-1.30); EST Glomerular Filtration Rate 103 mL/min (>60); Est Glom Filt Rate - Afr Amer 125 mL/min (>60); Globulin 3.1 g/dL (2.2-4.2); Glucose 122 mg/dL (74-106); High Density Lipoprotein 67 mg/dL; Potassium 4.2 mmol/L (3.5-5.1); Protein, Total 6.9 g/dL (6.4-8.2); Sodium Level 140 mmol/L (136-145); Triglycerides 37 mg/dL; Very Low Density Lipoprotein 7 mg/dL (5-40)
--- OUTSIDE RECORDS SUMMARY | 2024-01-06 19:52 | XMS RPT_ITS | CCD ---
Author Organization [facility] Care Team Providers Care Associate Financial Analyst Name Role Phone VARINDER, GLYNN Unavailable Unavailable [...] Unavailable Unavailable Hilary Barr DO Primary Care [facility] er HILARY BARR Attending HILARY Long Primary Care HILARY Long Referring HILARY Long Primary Care HILARY Long Attending Calin BARR [place] Primary Care FE Abreu Attending Unavailable FE MARC Primary Care Unavailable Fe Marc DO Primary Care Provider Allergies Allergy Classification Reported Allergen(s) Allergy Type Date of Onset Reaction(s) Facility (3 sources) egg (chicken) allergenic extract; Translations: [EGG EXTRACT] Drug Allergy 2 Other: See Comments [facility] (3 sources) Onion extract; Translations: [ONION] Drug Allergy 9 GI Upset, Diarrhea [facility] (1 source) Egg Allergy to substance 2 Unknown, Other [facility] (1 source) Onion extract Drug Allergy 9 Diarrhea, Nausea Only [facility] Medications Current Medications Medication Drug Class(es) Dates Sig (Normalized) Sig (Original) 12 hr buPROPion hydrochloride 150 mg extended release oral tablet (2 sources) Aminoketone Start: 02-19-2022 End: 05-20-2022 take 1 tablet by mouth twice daily buPROPion SR (WELLBUTRIN SR) 150 mg 12 hr tablet Indications: Smoker Take 1 tablet by mouth twice daily. 180 tablet 1 02/19/2022 05/20/2022 Active Comment on above: Take 1 tablet by lola th twice daily. escitalopram 10 mg oral tablet (6 sources) Serotonin Reuptake Inhibitor Start: 08-14-2022 End: 02-10-2023 take 1 tablet by mouth once daily escitalopram (Lexapro) 10 MG tablet Indications: Moderate episode of recurrent major depressive disorder (HCC) Take 1 tablet (10 mg) by mouth daily. 30 tablet 5 08/14/2022 02/10/2023 Active take 1 tablet by mouth once matthew y escitalopram oxalate (LEXAPRO) 20 mg tablet Take 20 mg by mouth once daily. 0 Active Comment on above: Take 20 mg by mouth once daily. 3 ml insulin aspart, human 100 unt/ml cartridge (1 source) Insulin Analog insulin aspart ( NovoLOG, Fiasp) 100 UNIT/ML patient supplied pump Inject under the skin continuous. 0 Active Completed/Discontinued Medications Medication Drug Class(es) Dates Sig (Normalized) Sig (Original) citalopram 40 mg oral tablet (5 sources) Serotonin Reuptake Inhibitor Start: 10-28-2017 take 1 tablet by mouth once daily citalopram (CELEXA) 40 mg tablet Indications: Type 1 diabetes mellitus with hyperglycemia, with long-term current use of insulin (HCC) Take 1 tablet by mouth once daily. 90 tablet 2 10/28/2017 Active Comment on above: Take 1 tablet by lola th once daily. flash glucose scanning reader (FREESTYLE ADELAIDA 14 DAY READER) misc (5 sources) Start: 11-06-2018 flash glucose scanning reader (FREESTYLE ADELAIDA 14 DAY READER) misc Indications: Type 1 diabetes mellitus with hyperglycemia, with long-term current use of insulin (HCC) Use as directed 1 Each 0 11/06/2018 Active Comment on above: Use as directed flash glucose sensor (FREESTYLE ADELAIDA 14 DAY SENSOR) kit (5 sources) Start: 11-06-2018 flash glucose sensor (FREESTYLE ADELAIDA 14 DAY SENSOR) kit Indications: Type 1 diabetes mellitus with hyperglycemia, with long-term current use of insulin (HCC) Use every 2 weeks as instructed 2 Kit 5 11/06/2018 Active Comment on above: Use every 2 weeks as instructed FLUoxetine 40 mg oral capsule (9 sources) Serotonin Reuptake Inhibitor Start: 02-19-2022 End: 08-14-2022 FLUoxetine (PROzac) 40 MG capsule Take by mouth. 0 02/19/2022 08/14/2022 Discontinued Start: 01-30-2022 End: 08-14-2022 take 1 capsule by mouth once daily, then take 2 capsules by mouth once daily FLUoxetine (PROzac) 20 MG capsule TAKE 1 CAPSULE BY MOUTH ONCE DAILY FOR 7 DAYS, THEN TAKE 2 CAPSULES ONCE DAILY 0 01/30/2022 08/14/2022 Discontinued (Entered in error) Comment on above: Take 1 capsule by mo ut once daily for 7 days, THEN 2 capsules once daily. Take 1 capsule by mo ut once daily. sensor 3 ml insulin glargine 100 unt/ml pen injector (5 sources) Insulin Analog Start: 01-13-2019 insulin glargine (LANTUS SOLOSTAR U-100 INSULIN) 100 unit/mL (3 mL) inpn Indications: Type 1 diabetes mellitus with hyperglycemia, with long-term current use of insulin (HCC) Inject 30 Units subcutaneously once daily. 10 Pen 1 01/13/2019 Active Start: 01-13-2019 insulin glargi ne (LANTUS SOLOSTAR U-100 INSULIN) 100 unit/mL (3 mL) inpn Indications: Type 1 diabetes mellitus with hyperglycemia, with long-term current use of insulin (HCC) Inject 30 Units subcutaneously once daily. 10 Pen 1 01/13/2019 Active Comment on above: Inject 30 Units subc utaneously once daily. 3 ml insulin lispro 200 unt/ml pen injector (5 sources) Insulin Analog Start: 01-14-20 19 insulin lispro (HUMALOG KWIKPEN INSULIN) 200 unit/mL (3 mL) injection Indications: Type 1 diabetes mellitus with hyperglycemia, with long-term current use of insulin (HCC) Patient injecting TID with meals, on sliding scale, max daily dose 50 units 12 Pen 1 01/13/2019 Active Comment on above: Patient injecting TI D with meals, on sliding scale, max daily dose 50 units Nirmatrelvir&Ritonav ir 300/100 (Paxlovid) 20 x 150 MG & 10 x 100MG tablet therapy pack (1 source) Start: 09-07-19 End: 08-15-19 Nirmatrelvir&Ritonav ir 300/100 (Paxlovid) 20 x 150 MG & 10 x 100MG tablet therapy pack TAKE 3 TABLETS (TWO 150 MG NIRMATRELVIR AND ONE 100 MG RITONAVOR TABLETS) BY MOUTH EVERY 12 HOURS FOR 5 DAYS [YELLOW HALF=AM, BLUE HALF=PM] 30 each 0 09/06/2021 08/14/2022 Discontinued (Med list cleanup) rOPINIRole 1 mg oral tablet (2 sources) Nonergot Dopamine Agonist Start: 02-20-20 take 1 tablet by mouth once daily at bedtime rOPINIRole (REQUIP) 1 mg tablet Indications: Restless leg syndrome Take 1 tablet by mouth daily at bedtime. 30 tablet 5 02/19/2022 Active Comment on above: Take 1 tablet by lola th daily at bedtime. 24 hr venlafaxine 150 mg extended release oral capsule (1 source) Serotonin and Norepinephrine Reuptake Inhibitor Start: 06-24-19 End: 01-31-20 take 1 capsule by mouth every twenty-four hours venlafaxine ER (EFFEXOR XR) 150 mg 24 hr capsule Take by mouth. 0 06/23/2021 01/30/2022 Discontinued (Course of therapy completed) Comment on above: Take by mouth. Problems Active Problems Problem Classification Problem Date [...] Name Value Interpretation Reference Range Facil ity Office Visiton 08-14-2022 Follow-up visit [id number] Nya Marquez 1985 M Date Provider Department Center 08/14/2022 FE HOFF [facility] Family History Problem Relation Age of Onset Diabetes Mother Multiple myeloma Mother Kidney failure Mother No Known Problems Father Family Status - Relation Status Age at Mother Alive Father Level of Service:28600 CA OFFICE/OUTPATIENT NEW MODERATE MDM 45-59 MINUTES Reason for Visit and Comments: Annual Exam [83] - Pt very upset with previous pcp for giving to many meds for depression Depression [32] Normal [facility] Progress Noteon 08-14-2022 Progress Note [facility] [address] [place] [address] Visit type: New Patient Reason for [...] seeing psych - lost insurance, started seeing Momo Started on prozac and wellbutrin Prozac was increased to 40 mg Then started on wellbutrin to help him quit smoking He is sleeping all of the time. Having nightmares. His says he is twitching in his sleep Works at [email or web address] Sold his house and moved in his mom - she has stage 4 CKD and MM, dementia, DM His most recent A1c is down 6.9 Hasn't had an eye exam Review of Systems Constitutional: Positive for fatigue. Negative for appetite change, chills and fever. Psychiatric/Behaviora l: Positive for dysphoric mood. Negative for confusion, [...] DAYS, THEN TAKE 2 CAPSULES ONCE DAILY Nirmatrelvir&Ritonavi r 300/100 (Paxlovid) 20 x 150 MG & 10 x 100MG tablet therapy pack TAKE 3 TABLETS (TWO 150 MG NIRMATRELVIR AND ONE 100 MG RITONAVOR TABLETS) BY MOUTH EVERY 12 HOURS FOR 5 DAYS [YELLOW HALF=AM, BLUE HALF=PM] 30 each 0 No facility-administered medications prior to visit. Past Medical History: Diagnosis Date CHF (congestive heart failure) ([facility] ([facility]) Depression Social History Socioeconomic History Marital status: [...] lb (79.4 kg) SpO2 97% BMI 26.61 kg/m? Physical Exam Vitals and nursing note reviewed. [...] (PROzac) 20 MG capsule Entered in error Nirmatrelvir&Ritonavi r 300/100 (Paxlovid) 20 x 150 MG & 10 x 100MG tablet th (more content not included)... [facility] Office Visit (FPDOYL ) NYA MARQUEZ ([id number]) 1985 M Date Time Provider Department 02/19/22 3:30 PM HILARY BARR During your visit today, we recorded the following information about you: Temperature Pulse Blood pressure Weight 98.4 degrees 84/minute 140/96 76.2 kg Height 1.727 m Hilary Barr DO 03/07/2022 6:21 PM Signed [facility] [place] Hilarykimberli Barr, DO [address] [place] [address] Date of Evaluation: 02/19/2022 Patient Name: Nya Marquez : 1985 Chief Complaint: Patient presents with: Results: Blood work Anxiety: Follow up after taking prozac Nursing Intake: There are no exam notes on file for this visit. Subjective Mr. Marquez is a 36 year old male who presents with the following complaint(s): The history is provided by the patient. No conference interpreter was used. Anxiety Pertinent negatives include no [...] and headaches. Hematological: Does not bruise/bleed easily. Psychiatric/Behaviora l: The patient is nervous/anxious. PAST MEDICAL HISTORY [...] scanning reader (FREESTYLE ADELAIDA 14 DAY READER) [facility] Use as directed (Patient not taking: No [...] No sig reported) 90 tablet 2 Insulin [place], Disposable, (BD ULTRA-FINE ALEKSANDRA PEN NEEDLE) 32 [...] are normal. Vision grossly intact. Gaze aligned appropria (more content not included)... Normal [facility] 02-06-2022 [facility] Telephone (SCOTTYL) NYA MARQUEZ ([id number]) 1985 M Date Time Provider Department 02/06/22 HILARY BARR During your visit today, we recorded the following information about you: Christine Garcia LPN 02/06/2022 10:53 AM Signed ----- Message from Hilary Barr DO sent at 02/06/2022 9:32 AM EST ----- Glucose too high increase lantus 2 units every night until fasting 130 and stop at that dose. Or see me and we will review. Recheck with glucose diary 7-10 days Christine Garcia LPN 02/06/2022 11:16 AM Signed Left message to call Tanja Tanner LPN 02/07/2022 1:32 PM Signed 2nd attempt, left message to call. Christine Garcia LPN 02/08/2022 10:03 AM Signed 3rd attempt, tried cell phone number, said mailbox is full. Please mail letter to patient to have him call the office. Thank you. Beverly Cochran 02/08/2022 3:09 PM Signed Pt returned the call. Scheduled pt for 02/19/22 10 days appt. Pt also had some medication side effects he wanted to talk to someone about. Transferred to nurse line. Nurse line did not receive the call. Allergies As of Date: 02/06/2022 (No Known Allergies) Date Reviewed: 01/30/2022 Reviewed by: Christine Garcia LPN - Fully Assessed Reason for Visit: Results [95] Cmt: Letter to be mailed Prescriptions as of 02/08/2022 - FLUoxetine (PROZAC) 20 mg capsule Take [...] scanning reader (FREESTYLE ADELAIDA 14 DAY READER) [facility] Use as directed - flash glucose sensor (FREESTYLE ADELAIDA 14 DAY SENSOR) kit Use every 2 weeks as instructed - blood sugar diagnostic (ONETOUCH VERIO) test strip Test 4 times daily - citalopram (CELEXA) 40 mg tablet Take 1 tablet by mouth once daily. - Insulin [place], Disposable, (BD ULTRA-FINE ALEKSANDRA PEN NEEDLE) 32 gauge x 5/32 ndle 1 Each four times daily. Problem List As Of Date 02/06/2022 Noted Resolved Type 1 diabetes mellitus with hyperglycemia, wi* Overweight (BMI 25.0-29.9) [E66.3] 10/28/2017 Encounter Status:Closed by CHRISTINE GARCIA on 02/08/22 [facility] CBC W Auto Differential pane l (Bld)on 01-30-2022 Basophils (Bld) [#/Vol] 0.06 10*3/uL <0.11 k/uL [facility] Basophils/100 WBC (Bld) 1.0 % [facility] Differential cell count method Nom (Bld) Auto [facility] Eosinophils (Bld) [#/Vol] 0.15 10*3/uL <0.46 k/uL [facility] Eosinophils/100 WBC (Bld) 2.4 % [facility] Erythrocyte distribution width (RBC) [Ratio] 13.0 % 11.5 - 15.0 % [facility] Hematocrit (Bld) [Volume fraction] 47.1 % 39.0 - 51.0 % [facility] Hemoglobin (Bld) [Mass/Vol] 16.2 g/dL 13.0 - 17.0 g/dL [facility] Immature granulocytes (Bld) [#/Vol] <0.10 k/uL [facility] Immature granulocytes/100 WBC (Bld) 0.3 % [facility] Lymphocytes (Bld) [#/Vol] 1.11 10*3/uL 1.00 - 4.00 k/uL [facility] Lymphocytes/100 WBC (Bld) 18.0 % [facility] MCH (RBC) [Entitic mass] 30.1 pg 26.0 - 34.0 pg [facility] MCHC (RBC) [Mass/Vol] 34.4 g/dL 30.5 - 36.0 g/dL [facility] MCV (RBC) [Entitic vol] 87.4 fL 80.0 - 100.0 fL [facility] Monocytes (Bld) [#/Vol] 0.67 10*3/uL <0.87 k/uL [facility] Monocytes/100 WBC (Bld) 10.9 % [facility] Neutrophils (Bld) [#/Vol] 4.14 10*3/uL 1.45 - 7.50 k/uL [facility] Neutrophils/100 WBC (Bld) 67.4 % [facility] Nucleated RBC (Bld) [#/Vol] <0.01 k/uL [facility] Nucleated RBC/100 WBC (Bld) [Ratio] 0.0 /100 WBC [facility] Platelet mean volume (Bld) [Entitic vol] 10.1 fL 9.0 - 12.7 fL [facility] Platelets (Bld) [#/Vol] 260 10*3/uL 150 - 400 k/uL [facility] RBC (Bld) [#/Vol] 5.39 10*6/uL 4.20 - 6.0 0 m/uL [facility] WBC (Bld) [#/Vol] 6.15 10*3/uL 3.70 - 11. 00 k/uL [facility] Basophils (Bld) [#/Vol] 0.06 10*3/uL Normal <0.11 [facility] Comment on above: Order Comment: Speci men Type: BLOOD SPECIMEN Ordering Facility: [facility] Address: [address] [place] [address] Performed By: #### 2 4323-8, 38858-0, 3015-3 #### [facility] CLIA [id number] [address] [place] Basophils/100 WBC (Bld) 1.0 % Normal [facility] Comment on above: Order Comment: Speci men Type: BLOOD SPECIMEN Ordering Facility: [facility] Address: [address] [place] [address] Performed By: #### 2 4323-8, 92609-6, 3 #### [facility] CLIA [id number] [address] [place] Differential cell count method Nom (Bld) Auto Normal [facility] Comment on above: Order Comment: Speci men Type: BLOOD SPECIMEN Ordering Facility: [facility] Address: [address] [place] [address] Performed By: #### 2 4323-8, 85083-3, 3 #### [facility] CLIA [id number] [address] [place] Eosinophils (Bld) [#/Vol] 0.15 10*3/uL Normal <0.46 [facility] Comment on above: Order Comment: Speci men Type: BLOOD SPECIMEN Ordering Facility: [facility] Address: [address] [place] [address] Performed By: #### 2 4323-8, 55425-6, 3015-3 #### [facility] CLIA [id number] [address] [place] Eosinophils/100 WBC (Bld) 2.4 % Normal [facility] Comment on above: Order Comment: Speci men Type: BLOOD SPECIMEN Ordering Facility: [facility] Address: [address] [place] [address] Performed By: #### 2 4323-8, 05070-5, 6-3 #### [facility] CLIA [id number] [address] [place] OF [facility] Erythrocyte distribution width (RBC) [Ratio] 13.0 % Normal 11.5-15.0 [facility] Comment on above: Order Comment: Speci men Type: BLOOD SPECIMEN Ordering Facility: [facility] Address: [address] [address] Performed By: #### 2 4323-8, 28589-3, 3015-3 #### [facility] CLIA [id number] [address] [place] Hematocrit (Bld) [Volume fraction] 47.1 % Normal 39.0-51.0 [facility] Comment on above: Order Comment: Speci men Type: BLOOD SPECIMEN Ordering Facility: [facility] Address: [address] [address] Performed By: #### 2 4323-8, 63289-2, 3015-3 #### [facility] CLIA [id number] [address] [place] Hemoglobin (Bld) [Mass/Vol] 16.2 g/dL Normal 13.0-17.0 [facility] Comment on above: Order Comment: Speci men Type: BLOOD SPECIMEN Ordering Facility: [facility] Address: [address] [address] Performed By: #### 2 4323-8, 89201-0, 3015-3 #### [facility] CLIA [id number] [address] [place] Immature granulocytes (Bld) [#/Vol] 10*3/uL Normal <0.10 [facility] Comment on above: Order Comment: Speci men Type: BLOOD SPECIMEN Ordering Facility: [facility] Address: [address] [address] Performed By: #### 2 4323-8, 48057-9, 6-3 #### [facility] CLIA [id number] [address] OF [facility] Immature granulocytes/100 WBC (Bld) 0.3 % Normal [facility] Comment on above: Order Comment: Speci men Type: BLOOD SPECIMEN Ordering Facility: [facility] Address: [address] [place] [address] Performed By: #### 2 4323-8, 60061-5, 6-3 #### [facility] CLIA [id number] [address] [place] Lymphocytes (Bld) [#/Vol] 1.11 10*3/uL Normal 1.00-4.00 [facility] Comment on above: Order Comment: Speci men Type: BLOOD SPECIMEN Ordering Facility: [facility] Address: [address] [place] [address] Performed By: #### 2 4323-8, 39513-1, 3015-3 #### [facility] CLIA [id number] [address] [place] [address] Lymphocytes/100 WBC (Bld) 18.0 % Normal [facility] Comment on above: Order Comment: Speci men Type: BLOOD SPECIMEN Ordering Facility: [facility] Address: [address] [place] [address] Performed By: #### 2 4323-8, 87470-6, 6-3 #### [facility] CLIA [id number] [address] STATES [facility] MCH (RBC) [Entitic mass] 30.1 pg Normal 26.0-34.0 [facility] Comment on above: Order Comment: Speci men Type: BLOOD SPECIMEN Ordering Facility: [facility] Address: [address] [place] [address] Performed By: #### 2 4323-8, 49337-2, 6-3 #### [facility] CLIA [id number] [address] MCHC (RBC) [Mass/Vol] 34.4 g/dL Normal 30.5-36.0 [facility] Comment on above: Order Comment: Speci men Type: BLOOD SPECIMEN Ordering Facility: [facility] Address: [address] [place] [address] Performed By: #### 2 4323-8, 32006-4, 3015-3 #### [facility] CLIA [id number] [address] MCV (RBC) [Entitic vol] 87.4 fL Normal 80.0-100.0 [facility] Comment on above: Order Comment: Speci men Type: BLOOD SPECIMEN Ordering Facility: [facility] Address: [address] [place] [address] Performed By: #### 2 4323-8, 04864-2, 3 #### [facility] CLIA [id number] [address] [place] Monocytes (Bld) [#/Vol] 0.67 10*3/uL Normal <0.87 [facility] Comment on above: Order Comment: Speci men Type: BLOOD SPECIMEN Ordering Facility: [facility] Address: [address] [place] [address] Performed By: #### 2 4323-8, 75226-7, 3 #### [facility] CLIA [id number] [address] OF [facility] Monocytes/100 WBC (Bld) 10.9 % Normal [facility] Comment on above: Order Comment: Speci men Type: BLOOD SPECIMEN Ordering Facility: [facility] Address: [address] [place] [address] Performed By: #### 2 4323-8, 16729-3, 3015-3 #### [facility] CLIA [id number] [address] [place] Neutrophils (Bld) [#/Vol] 4.14 10*3/uL Normal 1.45-7.50 [facility] Comment on above: Order Comment: Speci men Type: BLOOD SPECIMEN Ordering Facility: [facility] Address: [address] [address] Performed By: #### 2 4323-8, 06517-8, 3015-3 #### [facility] CLIA [id number] [address] Neutrophils/100 WBC (Bld) 67.4 % Normal [facility] Comment on above: Order Comment: Speci men Type: BLOOD SPECIMEN Ordering Facility: [facility] Address: [address] [address] Performed By: #### 2 4323-8, 29979-6, 3015-3 #### [facility] CLIA [id number] [address] Nucleated RBC (Bld) [#/Vol] 10*3/uL Normal <0.01 [facility] Comment on above: Order Comment: Speci men Type: BLOOD SPECIMEN Ordering Facility: [facility] Address: [address] [address] Performed By: #### 2 4323-8, 87024-3, 3 #### [facility] CLIA [id number] [address] Nucleated RBC/100 WBC (Bld) [Ratio] 0.0 /100 WBC Normal [facility] Comment on above: Order Comment: Speci men Type: BLOOD SPECIMEN Ordering Facility: [facility] Address: [address] [address] Performed By: #### 2 4323-8, 14683-5, 3 #### [facility] CLIA [id number] [address] Platelet mean volume (Bld) [Entitic vol] 10.1 fL Normal 9.0-12.7 [facility] Comment on above: Order Comment: Speci men Type: BLOOD SPECIMEN Ordering Facility: [facility] Address: [address] [address] Performed By: #### 2 4323-8, 22557-9, 3015-3 #### [facility] CLIA [id number] [address] [place] Platelets (Bld) [#/Vol] 260 10*3/uL Normal 150-400 [facility] Comment on above: Order Comment: Speci men Type: BLOOD SPECIMEN Ordering Facility: [facility] Address: [address] [place] [address] Performed By: #### 2 4323-8, 64263-8, 3016-3 #### [facility] CLIA [id number] [address] OF [facility] RBC (Bld) [#/Vol] 5.39 10*6/uL Normal 4.20-6.00 [facility] Comment on above: Order Comment: Speci men Type: BLOOD SPECIMEN Ordering Facility: [facility] Address: [address] [place] [address] Performed By: #### 2 4323-8, 03865-5, 3016-3 #### [facility] CLIA [id number] [address] [place] [address] OF [facility] WBC (Bld) [#/Vol] 6.15 10*3/uL Normal 3.70-11.00 [facility] Comment on above: Order Comment: Speci men Type: BLOOD SPECIMEN Ordering Facility: [facility] Address: [address] [place] [address] Performed By: #### 2 4323-8, 91867-3, 3016-3 #### [facility] CLIA [id number] [address] [place] [address] OF [facility] CNOVon 01-30-2022 CNOV Office Visit (FPDOYL ) NYA MARQUEZ ([id number]) 1985 Date Time Provider Department 01/30/22 11:15 AM MOMOKAREENHILARY CONNOR FPDOYL During your visit today, we recorded the following information about you: Temperature Pulse Blood pressure Weight 98.5 degrees 95/minute 120/88 76.7 kg Height 1.727 m Hilary Medrano Momo, DO 02/07/2022 6:16 PM Signed [facility] Medicine [place]abb Hilary Barr DO [address] [place] [address] Date of Evaluation: 01/30/2022 Patient Name: Nya Marquez : 1985 Chief Complaint: Patient presents with: Depression Anxiety New Patient review depression screening Nursing Intake: There are no exam notes on file for this visit. Subjective Mr. Marquez is a 36 year old male who presents with the following complaint(s): The history is provided by the patient. No conference interpreter was used. Depression Pertinent negatives include no [...] and headaches. Hematological: Does not bruise/bleed easily. Psychiatric/Behaviora l: Positive for depression and dysphoric mood. The [...] No sig reported) 90 tablet 2 Insulin [place], Disposable, (BD ULTRA-FINE ALEKSANDRA PEN NEEDLE) 32 [...] Tympanic membrane, ear canal and external ear jewel (more content not included)... Normal [facility] Comprehensive metabolic 2000 panelon 01-30-2022 Albumin [Mass/Vol] 4.8 g/dL 3.9 - 4.9 g/dL Cl [facility] ALP [Catalytic activity/Vol] 78 U/L 38 - 113 U/L [facility] ALT With P-5'-P [Catalytic activity/Vol] 20 U/L 10 - 54 U/L [facility] Anion gap [Moles/Vol] 8 mmol/L Low 9 - 18 mmol/L [facility] AST With P-5'-P [Catalytic activity/Vol] 16 U/L 14 - 40 U/L [facility] Bilirubin [Mass/Vol] 0.4 mg/dL 0.2 - 1.3 mg/dL [facility] Calcium [Mass/Vol] 10.1 mg/dL 8.5 - 10. 2 mg/dL [facility] Chloride [Moles/Vol] 101 mmol/L 97 - 105 mmol/L [facility] CO2 [Moles/Vol] 27 mmol/L 22 - 30 mmol/L [facility] Creatinine [Mass/Vol] 0.82 mg/dL 0.73 - 1.22 mg/dL [facility] Estimated Glomerular Filtration Rate 118 mL/min/1.73m >=60 mL/min/1.73m [facility] Glucose [Mass/Vol] 368 mg/dL High 74 - 99 mg/dL [facility] Potassium [Moles/Vol] 5.1 mmol/L 3.7 - 5.1 mmol/L [facility] Protein [Mass/Vol] 7.2 g/dL 6.3 - 8.0 g/dL [facility] Sodium [Moles/Vol] 136 mmol/L 136 - 144 mmol/L [facility] Urea nitrogen [Mass/Vol] 15 mg/dL 9 - 24 mg/dL [facility] Albumin [Mass/Vol] 4.8 g/dL Normal 3.9-4.9 [facility] Comment on above: Order Comment: Speci men Type: BLOOD SPECIMEN Ordering Facility: [facility] Address: [address] [address] Performed By: #### 2 4323-8, 92801-9, 3015-3 #### [facility] CLIA [id number] [address] ALP [Catalytic activity/Vol] 78 U/L Normal 38-113 [facility] Comment on above: Order Comment: Speci men Type: BLOOD SPECIMEN Ordering Facility: [facility] Address: [address] [place] [address] Performed By: #### 2 4323-8, 94170-4, 3 #### [facility] CLIA [id number] [address] [place] [address] ALT With P-5'-P [Catalytic activity/Vol] 20 U/L Normal 10-54 [facility] Comment on above: Order Comment: Speci men Type: BLOOD SPECIMEN Ordering Facility: [facility] Address: [address] [place] [address] Performed By: #### 2 4323-8, 00566-6, 3 #### [facility] CLIA [id number] [address] Anion gap [Moles/Vol] 8 mmol/L Low 9-18 [facility] Comment on above: Order Comment: Speci men Type: BLOOD SPECIMEN Ordering Facility: [facility] Address: [address] [address] Performed By: #### 2 4323-8, 82391-2, 3015-3 #### [facility] CLIA [id number] [address] AST With P-5'-P [Catalytic activity/Vol] 16 U/L Normal 14-40 [facility] Comment on above: Order Comment: Speci men Type: BLOOD SPECIMEN Ordering Facility: [facility] Address: [address] Performed By: #### 2 4323-8, 99893-5, 3015-3 #### [facility] CLIA [id number] [address] [place] Bilirubin [Mass/Vol] 0.4 mg/dL Normal 0.2-1.3 [facility] Comment on above: Order Comment: Speci men Type: BLOOD SPECIMEN Ordering Facility: [facility] Address: [address] [address] Performed By: #### 2 4323-8, 90917-2, 3 #### [facility] CLIA [id number] 1 [place] [address] [place] Calcium [Mass/Vol] 10.1 mg/dL Normal 8.5-10.2 [facility] Comment on above: Order Comment: Speci men Type: BLOOD SPECIMEN Ordering Facility: [facility] Address: [address] [address] Performed By: #### 2 4323-8, 82860-4, 3 #### [facility] CLIA [id number] 1 [place] [address] [place] Chloride [Moles/Vol] 101 mmol/L Normal 97-105 [facility] Comment on above: Order Comment: Speci men Type: BLOOD SPECIMEN Ordering Facility: [facility] Address: [address] [address] Performed By: #### 2 4323-8, 94642-4, 3 #### [facility] CLIA [id number] 1 [place] [address] [place] CO2 [Moles/Vol] 27 mmol/L Normal 22-30 [facility] Comment on above: Order Comment: Speci men Type: BLOOD SPECIMEN Ordering Facility: [facility] Address: [address] [address] Performed By: #### 2 4323-8, 43732-7, 3015-3 #### [facility] CLIA [id number] [address] STATES [facility] Creatinine [Mass/Vol] 0.82 mg/dL Normal 0.73-1.22 [facility] Comment on above: Order Comment: Lidia tse Type: BLOOD SPECIMEN Ordering Facility: [facility] Address: [address] [place] [address] Performed By: #### 2 4323-8, 41362-9, 6-3 #### [facility] CLIA [id number] [address] ESTIMATED GLOMERULAR FILTRATION RATE 118 mL/min/1.73m??? Normal >=60 [facility] Comment on above: Order Comment: Lidia tse Type: BLOOD SPECIMEN Ordering Facility: [facility] Address: [address] [place] [address] Result Comment: Kina mated Glomerular Filtration Rate (eGFR) is calculated using the 2020 CKD-EPI creatinine equation. This equation utilizes serum creatinine, sex, and age as parameters. The creatinine assay has traceable calibration to isotope dilution-mass spectrometry. Refer to KDIGO guidelines for clinical interpretation. In patients with unstable renal function, e.g. those with acute kidney injury, the eGFR may not accurately reflect actual GFR. Performed By: #### 2 4323-8, 74770-9, 3 #### [facility] CLIA [id number] [address] STATES OF [facility] Glucose [Mass/Vol] 368 mg/dL High 74-99 [facility] Comment on above: Order Comment: Lidia tse Type: BLOOD SPECIMEN Ordering Facility: [facility] Address: [address] [place] [address] Result Comment: The [place] Diabetes Association (ADA) provides guidance for cutoff values for fasting glucose and random glucose. The ADA defines fasting as no caloric intake for at least 8 hours. Fasting plasma glucose results between 100 to 125 mg/dL indicate increased risk for diabetes (prediabetes). Fasting plasma glucose results greater than or equal to 126 mg/dL meet the criteria for diagnosis of diabetes. In the absence of unequivocal hyperglycemia, results should be confirmed by repeat testing. In a patient with classic symptoms of hyperglycemia or hyperglycemic crisis, random plasma glucose results greater than or equal to 200 mg/dL meet the criteria for diagnosis of diabetes. Reference: Standards of Medical Care in Diabetes 2016, [place] Diabetes Association. Diabetes Care. 2016.39(Suppl 1). Performed By: #### 2 4323-8, 13051-2, 3015-3 #### [facility] CLIA [id number] 1 [place] [address] [place] Potassium [Moles/Vol] 5.1 mmol/L Normal 3.7-5.1 [facility] Comment on above: Order Comment: Speci men Type: BLOOD SPECIMEN Ordering Facility: [facility] Address: [address] [place] [address] Performed By: #### 2 4323-8, 81122-1, 3 #### [facility] CLIA [id number] [address] [place] Protein [Mass/Vol] 7.2 g/dL Normal 6.3-8.0 [facility] Comment on above: Order Comment: Speci men Type: BLOOD SPECIMEN Ordering Facility: [facility] Address: [address] [address] Performed By: #### 2 4323-8, 31856-0, 3 #### [facility] CLIA [id number] [address] [place] Sodium [Moles/Vol] 136 mmol/L Normal 136-144 [facility] Comment on above: Order Comment: Speci men Type: BLOOD SPECIMEN Ordering Facility: [facility] Address: [address] [address] Performed By: #### 2 4323-8, 74468-9, 3015-3 #### [facility] CLIA [id number] [address] [place] Urea nitrogen [Mass/Vol] 15 mg/dL Normal 9-24 [facility] Comment on above: Order Comment: Speci men Type: BLOOD SPECIMEN Ordering Facility: [facility] Address: [address] [address] Performed By: #### 2 4323-8, 15832-1, 6-3 #### [facility] CLIA [id number] [address] Lipid 1996 panelon 2 Cholesterol [Mass/Vol] 178 mg/dL <200 mg/dL [facility] Cholesterol in HDL [Mass/Vol] 67 mg/dL >39 mg/dL [facility] Cholesterol in LDL [Mass/Vol] 102 mg/dL High <100 mg/dL [facility] Cholesterol in LDL/Cholesterol in HDL [Mass ratio] 1.52 {ratio} <2.54 [facility] Cholesterol in VLDL [Mass/Vol] 9 mg/dL <30 mg/[facility] Cholesterol non HDL [Mass/Vol] 111 mg/dL <130 mg/dL [facility] Cholesterol.total/C holesterol in HDL [Mass ratio] 2.66 {ratio} <5.10 [facility] Fasting Time 12 hrs [facility] Triglyceride [Mass/Vol] 43 mg/dL <150 mg/dL [facility] Cholesterol [Mass/Vol] 178 mg/dL Normal <200 [facility] Comment on above: Order Comment: Speci men Type: BLOOD SPECIMEN Ordering Facility: [facility] Address: [address] [place] [address] Result Comment: <200 mg/dL, Desirable 200-239 mg/dL, Borderline high >239 mg/dL, High Performed By: #### 2 4323-8, 34799-6, 3 #### [facility] CLIA [id number] [address] Cholesterol in HDL [Mass/Vol] 67 mg/dL Normal >39 [facility] Comment on above: Order Comment: Speci men Type: BLOOD SPECIMEN Ordering Facility: [facility] Address: [address] [address] Result Comment: 40-5 9 mg/dL, Acceptable >59 mg/dL, High: Negative risk factor for coronary heart disease <40 mg/dL, Low: Positive risk factor for coronary heart disease Performed By: #### 2 4323-8, 49470-7, 3015-3 #### [facility] CLIA [id number] [address] STATES OF [facility] Cholesterol in LDL [Mass/Vol] 102 mg/dL High <100 [facility] Comment on above: Order Comment: Lidia tse Type: BLOOD SPECIMEN Ordering Facility: [facility] Address: [address] [place] [address] Result Comment: <100 mg/dL, Optimal 100-129 mg/dL, Near optimal/above optimal 130-159 mg/dL, Borderline high 160-189 mg/dL, High >189 mg/dL, Very high Secondary prevention optimal LDL Cholesterol levels are recommended to be < 70 mg/dL Performed By: #### 2 4323-8, 40368-0, 3015-3 #### [facility] CLIA [id number] [address] Cholesterol in LDL/Cholesterol in HDL [Mass ratio] 1.52 {ratio} Normal <2.54 [facility] Comment on above: Order Comment: Lidia tse Type: BLOOD SPECIMEN Ordering Facility: [facility] Address: [address] [place] [address] Result Comment: Refe rence: 1. National Cholesterol Education Program ATP III Guideline At-A-Glance Quick Desk Reference: National Heart, Lung, and Blood [place]. National Institutes of Health. 2001: NIH Publication No. 01-3305. 2. An International Atherosclerosis Society position paper: global recommendations for the management of dyslipidemia: executive summary, Atherosclerosis. 2014: 232(2):410-413. Performed By: #### 2 4323-8, 30400-0, 3015-3 #### [facility] CLIA [id number] [address] STATES OF [facility] Cholesterol in VLDL [Mass/Vol] 9 mg/dL Normal <30 [facility] Comment on above: Order Comment: Lidia carmencita Type: BLOOD SPECIMEN Ordering Facility: [facility] Address: [address] [place] [address] Performed By: #### 2 4323-8, 69347-6, 6-3 #### [facility] CLIA [id number] [address] [place] Cholesterol non HDL [Mass/Vol] 111 mg/dL Normal <130 [facility] Comment on above: Order Comment: Jeani men Type: BLOOD SPECIMEN Ordering Facility: [facility] Address: [address] [place] [address] Result Comment: <130 mg/dL, Optimal 130-159 mg/dL, Near optimal/above optimal 160-189 mg/dL, Borderline high 190-219 mg/dL, High >219 mg/dL, Very high Secondary prevention optimal non HDL Cholesterol levels are recommended to be <100 mg/dL Performed By: #### 2 4323-8, 28716-6, 3016-3 #### [facility] CLIA [id number] [address] Cholesterol.total/C holesterol in HDL [Mass ratio] 2.66 {ratio} Normal <5.10 [facility] Comment on above: Order Comment: Lidia men Type: BLOOD SPECIMEN Ordering Facility: [facility] Address: [address] [place] [address] Performed By: #### 2 4323-8, 79057-1, 3016-3 #### [facility] CLIA [id number] [address] OF [facility] FASTING TIME 12 hrs Normal [facility] Comment on above: Order Comment: Lidia tse Type: BLOOD SPECIMEN Ordering Facility: [facility] Address: [address] [place] [address] Performed By: #### 2 4323-8, 04498-0, 3016-3 #### [facility] CLIA [id number] [address] STATES OF [facility] Triglyceride [Mass/Vol] 43 mg/dL Normal <150 [facility] Comment on above: Order Comment: Jeani men Type: BLOOD SPECIMEN Ordering Facility: [facility] Address: [address] [place] [address] Result Comment: <150 mg/dL, Normal 150-199 mg/dL, Borderline high 200-499 mg/dL, High >499 mg/dL, Very high Performed By: #### 2 4323-8, 51913-9, 3016-3 #### [facility] CLIA [id number] [address] [place] TSH BLDon 01-30-2022 TSH Qn 2.110 m[IU]/L 0.270 - 4.200 mIU/L [facility] TSH SerPl-aCncon 01-30-2022 TSH Qn 2.110 m[IU]/L Normal 0.270-4.200 [facility] Comment on above: Order Comment: Speci men Type: BLOOD SPECIMEN Ordering Facility: [facility] Address: [address] [place] [id number] Performed By: #### 2 4323-8, 80231-0, 3 #### [facility] CLIA [id number] [address] STATES OF [facility] Urinalysis complete panel (U )on 01-30-2022 Bilirubin Ql (U) Negative Negative [facility] Clarity (Unsp spec) Clear Clear [facility] Color (U) Colorless yellow [facility] Glucose Test strip (U) [Mass/Vol] 4+ Abnormal Negative [facility] Hemoglobin Ql (U) 1+ Abnormal Negative [facility] Ketones Ql (U) Negative Negative [facility] Leukocyte esterase Test strip Ql (U) Negative Negative [facility] Nitrite Ql (U) Negative Negative [facility] pH (U) 5.0 [pH] 5.0 - 8.0 [facility] Protein (U) [Mass/Vol] 1+ Abnormal Negative [facility] RBC LM.HPF (Urine sed) [#/Area] 0-3 /HPF 0-3 /HPF [facility] Specific gravity (U) [Rel density] 1.029 1.005 - 1.030 [facility] Urobilinogen Ql (U) Normal Negative [facility] WBC LM.HPF (Urine sed) [#/Area] 0-5 /HPF 0-5 /HPF [facility] Bilirubin Ql (U) Negative Normal Negative [facility] Comment on above: Order Comment: Speci men Type: URINE SPECIMEN Ordering Facility: [facility] Address: [address] [place] [address] Performed By: #### 2 4356-8 #### [facility] CLIA [id number] [address] [place] Clarity (Unsp spec) Clear Normal Clear [facility] Comment on above: Order Comment: Speci men Type: URINE SPECIMEN Ordering Facility: [facility] Address: [address] [address] Performed By: #### 2 4356-8 #### [facility] CLIA [id number] [address] [place] Color (U) Colorless Normal yellow [facility] Comment on above: Order Comment: Speci men Type: URINE SPECIMEN Ordering Facility: [facility] Address: [address] [place] [address] Performed By: #### 2 4356-8 #### [facility] CLIA [id number] [address] [place] Glucose Test strip (U) [Mass/Vol] 4+ Abnormal Negative [facility] Comment on above: Order Comment: Speci men Type: URINE SPECIMEN Ordering Facility: [facility] Address: [address] [address] Performed By: #### 2 4356-8 #### [facility] CLIA [id number] [address] [place] Hemoglobin Ql (U) 1+ Abnormal Negative [facility] Comment on above: Order Comment: Speci men Type: URINE SPECIMEN Ordering Facility: [facility] Address: [address] [address] Performed By: #### 2 4356-8 #### [facility] CLIA [id number] [address] [place] Ketones Ql (U) Negative Normal Negative [facility] Comment on above: Order Comment: Speci men Type: URINE SPECIMEN Ordering Facility: [facility] Address: [address] [address] Performed By: #### 2 4356-8 #### [facility] CLIA [id number] [address] Leukocyte esterase Test strip Ql (U) Negative Normal Negative [facility] Comment on above: Order Comment: Speci men Type: URINE SPECIMEN Ordering Facility: [facility] Address: [address] [place] [address] Performed By: #### 2 4356-8 #### [facility] CLIA [id number] [address] Nitrite Ql (U) Negative Normal Negative [facility] Comment on above: Order Comment: Speci men Type: URINE SPECIMEN Ordering Facility: [facility] Address: [address] [place] [address] Performed By: #### 2 4356-8 #### [facility] CLIA [id number] [address] pH (U) 5.0 [pH] Normal 5.0-8.0 [facility] Comment on above: Order Comment: Speci men Type: URINE SPECIMEN Ordering Facility: [facility] Address: [address] [place] [address] Performed By: #### 2 4356-8 #### [facility] CLIA [id number] [address] Protein (U) [Mass/Vol] 1+ Abnormal Negative [facility] Comment on above: Order Comment: Speci men Type: URINE SPECIMEN Ordering Facility: [facility] Address: [address] [place] [address] Performed By: #### 2 4356-8 #### [facility] CLIA [id number] [address] RBC LM.HPF (Urine sed) [#/Area] 0-3 /HPF Normal 0-3 /HPF [facility] Comment on above: Order Comment: Speci men Type: URINE SPECIMEN Ordering Facility: [facility] Address: [address] [place] [address] Performed By: #### 2 4356-8 #### [facility] CLIA [id number] [address] Specific gravity (U) [Rel density] 1.029 Normal 1.005-1.030 [facility] Comment on above: Order Comment: Speci men Type: URINE SPECIMEN Ordering Facility: [facility] Address: [address] [place] [address] Performed By: #### 2 4356-8 #### [facility] CLIA [id number] [address] Urobilinogen Ql (U) Normal Normal Negative [facility] Comment on above: Order Comment: Speci men Type: URINE SPECIMEN Ordering Facility: [facility] Address: [address] [place] [address] Performed By: #### 2 4356-8 #### [facility] CLIA [id number] [address] WBC LM.HPF (Urine sed) [#/Area] 0-5 /HPF Normal 0-5 /HPF [facility] Comment on above: Order Comment: Speci men Type: URINE SPECIMEN Ordering Facility: [facility] Address: [address] [place] [address] Performed By: #### 2 4356-8 #### [facility] CLIA [id number] [address] [place] HbA1c (Bld)on 09-22-2021 HbA1c (Bld) [Mass fraction] 7.8 % Abnormal 4.0 - 6.0 % [facility] ED Provider Noteon 2 ED Provider Note [facility] [place] [facility] eMERGENCY dEPARTMENT eNCOUnter Pt Name: Nya Marquez Birthdate 1985 Date of evaluation: 09/06/2021 Provider: CHARITY Maynard CNP I have evaluated this patient on my own, per my scope of practice with an attending physician available for consultation. CHIEF COMPLAINT Chief Complaint Patient presents with ? Fever possible covid HISTORY OF PRESENT ILLNESS (Location/Symptom, Timing/Onset,Context/ Setting, Quality, Duration, Modifying Factors, Severity) Note limiting factors. HPI Nya Marquez is a 35 y.o. male who presents to the emergency department with headache, fever, cough, body aches aching all over. He had symptoms for 2 days. Just found out that somebody was around a few days ago had COVID-19. He received the first shot of a 2 shot vaccination series but never went back and got the second 1. Nursing Notes were reviewed. REVIEW OF SYSTEMS (2+ for4; 10+ for level 5) Review of Systems Constitutional: Positive for chills, fatigue and fever. Negative for activity change and appetite change. HENT: Negative for congestion, ear discharge, ear pain, hearing loss, postnasal drip, rhinorrhea and sore throat. Eyes: Negative for discharge and redness. Respiratory: Positive for cough. Negative for chest tightness, shortness of breath and wheezing. Cardiovascular: Negative for chest pain and palpitations. Gastrointestinal: Negative for abdominal pain, blood in stool, diarrhea, nausea and vomiting. Genitourinary: Negative for dysuria. Musculoskeletal: Positive for myalgias. Negative for arthralgias. Skin: Negative for color change. Neurological: Positive for headaches. Negative for dizziness, tremors, syncope, weakness and light-headedness. Hematological: Negative for adenopathy. Psychiatric/Behaviora l: Negative for agitation and confusion. All other systems reviewed and are negative. PAST MEDICAL HISTORY Past Medical History: Diagnosis Date ? CHF (congestive heart failure) (HCC) ? Depression SURGICALHISTORY No past surgical history on file. CURRENT MEDICATIONS Previous Medications No medications on file Patient has no known allergies. FAMILY HISTORY No family history on file. SOCIAL HISTORY Social History Socioeconomic History ? Marital status: Spouse name: Not on file ? Number of children: Not on file ? Years of education: Not on file ? Highest education level: Not on file Occupational History ? Not on file Tobacco Use ? Smoking status: Current Every Day Smoker Packs/day: 1.00 Years: 15.00 Pack years: 15.00 Types: Cigarettes ? Smokeless tobacco: Never Used Vaping Use ? Vaping Use: Never used Substance and Sexual Activity ? Alcohol use: Never ? Drug use: Never ? Sexual activity: Not on file Other Topics Concern ? Not on file Social History Narrative ? Not on file Social Determinants of Health Financial Resource Strain: ? Difficulty of Paying Living Expenses: Not on file Food Insecurity: ? Worried About Running Out of Food in the Last Year: Not on file ? Ran Out of Food in the Last Year: Not on file Transportation Needs: ? Lack of Transportation (Medical): Not on file ? Lack of Transportation (Non-Medical): Not on file Physical Activity: ? Days of Exercise per Week: Not on file ? Minutes of Exercise per Session: Not on file Stress: ? Feeling of Stress : Not on file Social Connections: ? Frequency of Communication with Friends and Family: Not on file ? Frequency of Social Gatherings with Friends and Family: Not on file ? Attends [employer] Services: Not on file ? Active Member of Clubs or Organizations: Not on file ? Attends Club or Organization Meetings: Not on file ? Marital Status: Not on file Intimate Partner Violence: ? Fear of Current or Ex-Partner: Not on file ? Emotionally Abused: Not on file ? Physically Abused: Not on file ? Sexually Abused: Not on file Housing Stability: ? Unable to Pay for Housing in the Last Year: Not on file ? Number of Places Lived in the Last Year: Not on file ? Unstable Housing in the Last Year: Not on file SCREENINGS Dana Coma Scale Eye Opening: Spontaneous Best Verbal Response: Oriented Best Motor Response: Obeys commands [place] Coma Scale Score: 15 PHYSICAL EXAM (5+ for level 4, 8+ for level 5) ED Triage Vitals [09/06/21 1807] BP Temp Temp Source Heart Rate Resp SpO2 Height Weight (!) 140/89 100.3 ?F (37.9 ?C) Oral (!) 118 18 99 % 5' 8 (1.727 m) 175 lb (79.4 kg) Physical Exam Vitals and nursing note reviewed. Constitutional: General: He is not in acute distress. Appearance: Normal appearance. He is normal weight. He is not ill-appearing or toxic-appearing. HENT: Head: Normocephalic and atraumatic. Comments: Tympanic membranes are clear bilaterally. There is no pain with manipulation of the ears. There is no mastoid tenderness bilaterally. Nasal turbinates are pink (more content not included)... Normal [facility] SARS-CoV-2, Flu A/B and RSVo n 09-06-2021 SARS-CoV-2 (COVID-19) RNA SUMA+probe Ql (Unsp spec) SARS-CoV-2 --> Status: F DETECTED Flu A PCR --> Status: F Not Detected. Flu B PCR --> Status: F Not Detected. RSV PCR --> Status: F Not Detected. Expected Result: Not Detected _ Method: Real-time, RT-PCR This assay was developed by [employer] and distributed under an Emergency Use Authorization (EUA) granted by the FDA for the qualitative detection of nucleic acids from SARS-CoV-2, Influenza A, Influenza B, and Respiratory Syncytial Virus. Provider and patient fact sheets can be found at https://www.fda.gov/m edia/085922/download and https://www.fda.gov/m edia/331996/download. Expected Result: Not Detected _ Method: Real-time, RT-PCR This assay was developed by [employer] and distributed under an Emergency Use Authorization (EUA) granted by the FDA for the qualitative detection of nucleic acids from SARS-CoV-2, Influenza A, Influenza B, and Respiratory Syncytial Virus. Provider and patient fact sheets can be found at https://www.fda.gov/m edia/735322/download and https://www.[employer].gov/ edia/582327/download. [facility] Comment on above: Performed By: #### C VFLR #### [facility] [address] [place] [address] , [address] COVIDon 10-17-2019 Date of Onset [id number] [facility] ([place]) Comment on above: Performed By: #### C OVID #### [place] [address] Employed in Healthcare No [facility] ([place]) Comment on above: Performed By: #### C OVID #### [place] [address] First Test Unknown [facility] ([place]) Comment on above: Performed By: #### C OVID #### [address] [address] Hospitalized No [facility] ([place]) Comment on above: Performed By: #### C OVID #### [place] [id number] ICU No [facility] ([place]) Comment on above: Performed By: #### C OVID #### [facility] [address] [place], [place] [address] Not Formerly [facility] ([place]) Comment on above: Performed By: #### C OVID #### [facility] [address] [place], [place] [address] Resides in Congregate Care Setting No [facility] ([place]) Comment on above: Performed By: #### C OVID #### [place] [id number] [place], [place] [address] Symptomatic as Defined by CDC Yes [facility] ([place]) Comment on above: Performed By: #### C OVID #### [place] [address] COVIDon 10-16-2019 COVID 19 Result CATERPILLAR DRIVER See Below [facility] ([place]) Comment on above: Result Comment: Nega tive Negative for COVID19 (SARS CoV2) by PCR. This test was developed and its performance characteristics determined by [facility] [place]. This test has been authorized by FDA under an Emergency Use Authorization (EUA). This test has been validated in accordance with the FDA's Guidance Document Policy for Diagnostics Testing in Laboratories Certified to Perform High Complexity Testing under CLIA prior to Emergency use Authorization for Coronavirus Disease 2019 during the Public Health Emergency issued on May 09, 2019. Performed By: [facility] Infusion Medical [address] [place] [id number] Pilot Plant Operator Helper: Nick Agrawal III, M.D. CLIA#: [id number] Phone#: Performed By: #### C OVID #### [place] [address] COVID 19 Source CATERPILLAR DRIVER See Below [facility] ([place]) Comment on above: Result Comment: CATERPILLAR DRIVER Performed By: [facility] [place] [address] Pilot Plant Operator Helper: Nick Agrawal III, M.D. CLIA#: [id number] Phone#: Performed By: #### C OVID #### [place] [id number] [place], [place] [address] Comprehensive Panelon 2017 Creatinine mass conc 0.68 mg/dL Normal 0.67-1.17 [facility] Comment on above: Performed By: #### P 14 ####[facility] [place], [place] [address] ALP enzyme act/vol 79 U/L Normal 46-116 [facility] Comment on above: Performed By: #### P 14 ####[address] [address] Protein mass conc 7.4 g/dL Normal 6.4-8.2 [facility] [place] [facility] Comment on above: Performed By: #### P 14 ####[address] [address] ALT enzyme act/vol 38 U/L Normal 12-78 [facility] Comment on above: Performed By: #### P 14 ####[address] [address] Bilirubin mass conc 0.8 mg/dL Normal 0.2-1.0 [facility] Comment on above: Performed By: #### P 14 ####[address] [address] AST enzyme act/vol 19 U/L Normal 9-37 [facility] Comment on above: Performed By: #### P 14 ####[address] [address] Glucose mass conc 218 mg/dL High 70-99 [facility] [place] [facility] Comment on above: Performed By: #### P 14 ####[address] [address] Albumin mass conc 4.3 g/dL Normal 3.4-5.0 [facility] [place] [facility] Comment on above: Performed By: #### P 14 ####[address] [address] Anion gap 3 molar conc 11 mmol/L Normal 8-16 [facility] Comment on above: Performed By: #### P 14 ####[address] [place] [address] Calcium mass conc 9.0 mg/dL Normal 8.5-10.1 [facility] [place] [facility] Comment on above: Performed By: #### P 14 ####[facility] [place], [place] [address] CO2 molar conc 30 mmol/L Normal 21-32 [facility] Comment on above: Performed By: #### P 14 ####[facility] [place], [place] [address] Urea nitrogen mass conc 14 mg/dL Normal 7-18 [facility] Comment on above: Performed By: #### P 14 ####[facility] [place], [place] [address] Chloride molar conc 99 mmol/L Normal 98-107 [facility] Comment on above: Performed By: #### P 14 ####[address] [address] Potassium molar conc 4.0 mmol/L Normal 3.5-5.1 [facility] Comment on above: Performed By: #### P 14 ####[facility] [place], [place] [address] Sodium molar conc 136 mmol/L Normal 136-145 [facility] [place] [facility] Comment on above: Performed By: #### P 14 ####[address] [address] Lipid Profileon 04-18-2017 Cholesterol in HDL mass conc 81 mg/dL Normal >40 [facility] Comment on above: Performed By: #### L IPD2 ####[facility] [place], [place] [address] Cholesterol in LDL mass conc 72 mg/dL Normal [facility] Comment on above: Result Comment: No C AD and with fewer than 2 CAD risk factors <160 mg/dlNo CAD but with 2 or more CAD risk factors <130 mg/dlDefinite CAD or other atherosclerotic disease <100 mg/dl Performed By: #### L IPD2 ####[facility] [place], [place] [address] Cholesterol in LDL/Cholesterol in HDL mass ratio 0.9 Low 1.1-4.8 [facility] Comment on above: Result Comment: LDL, VLDL,LDL/HDL, Invalid if Triglyceride >400 Performed By: #### L IPD2 ####[facility] [place], [place] [address] Cholesterol.total/C holesterol in HDL mass ratio 2.0 {ratio} Low 2.1-7.3 [facility] Comment on above: Performed By: #### L IPD2 ####[facility] [place], [place] [address] Cholesterol in VLDL mass conc 13 mg/dL Normal <50 Desired [facility] Comment on above: Performed By: #### L IPD2 ####[address] [address] Triglyceride mass conc 64 mg/dL Normal 0-149 [facility] Comment on above: Result Comment: < 20 0 DesirableResult invalid if not a fasting specimen. Performed By: #### L IPD2 ####[address] [address] Cholesterol mass conc 166 mg/dL Normal 0-199 [facility] Comment on above: Result Comment: <200 [id number] Borderline>240 High Performed By: #### L IPD2 ####[address] [address] MDRD GFRon 04-18-2017 GFR/1.73 sq M predicted among non-blacks MDRD vol rate/area (S/P/Bld) mL/min/{1.73_m2} Normal >60mL/min/1.73m 2 [facility] Comment on above: Result Comment: If t he patient is , multiply the result by 1.210. Performed By: #### G FR ####[address] [address] Microalbumin,Randomon 2017 MA/Creat Ratio 21.78 mg/g Normal 0.10-30.00 [facility] Comment on above: Performed By: #### M ALBR ####[address] [address] Microalbumin,Random 3.68 mg/dL High 0.20-2.50 [facility] Comment on above: Performed By: #### M ALBR ####[facility] [place], [place] [address] Creatinine,Urine 169.0 mg/dL Normal [facility] [place] [facility] Comment on above: Performed By: #### M ALBR ####[facility] [place], [place] [address] TSH, 3rd generationon 2017 TSH, 3rd generation 0.806 uIU/mL Normal 0.358-3.740 [facility] Comment on above: Performed By: #### T SH3 ####[address] [address] Vital Signs Date Time Vital Sign Value Performing Clinician Dacia woodall 08-14-2022 13:43-0400 Body height 172.7 cm Fe Marc DO Work Phone: [facility] 08-14-2022 13:43-0400 Body mass index (BMI) [Ratio] 26.61 kg/m2 Fe Marc DO Work Phone: [facility] 08-14-2022 13:43-0400 Body weight 79.38 kg Fe Marc DO Work Phone: [facility] 08-14-2022 13:43-0400 Diastolic blood pressure 70 mm[Hg] Fe Marc DO Work Phone: [facility] 08-14-2022 13:43-0400 Heart rate 91 /min Fe Marc DO Work Phone: [facility] 08-14-2022 13:43-0400 SaO2% (BldA) [Mass fraction] 97 % Fe Marc DO Work Phone: [facility] 08-14-2022 13:43-0400 Systolic blood pressure 100 mm[Hg] Fe Marc DO Work Phone: [facility] 02-19-2022 15:07-0500 Body height 172.7 cm Tiffin Momo DO Work Phone: [facility] 02-19-2022 15:07-0500 Body temperature 98.4 [degF] Tiffin Momo DO Work Phone: [facility] 02-19-2022 15:07-0500 Body weight 76.2 kg Hilary Momo DO Work Phone: [facility] 02-19-2022 15:07-0500 Diastolic blood pressure 96 mm[Hg] Tiffin Momo DO Work Phone: [facility] 02-19-2022 15:07-0500 Heart rate 84 /min Hilary Momo DO Work Phone: [facility] 02-19-2022 15:07-0500 SaO2% (BldA) [Mass fraction] 100 % Tiffin Momo DO Work Phone: [facility] 02-19-2022 15:07-0500 Systolic blood pressure 140 mm[Hg] Tiffin Momo DO Work Phone: [facility] 01-30-2022 10:53-0500 Body height 172.7 cm Tiffin Momo DO Work Phone: [facility] 01-30-2022 10:53-0500 Body temperature 98.49 [degF] Tiffin Momo DO Work Phone: [facility] 01-30-2022 10:53-0500 Body weight 76.66 kg Hilary Momo DO Work Phone: [facility] 01-30-2022 10:53-0500 Diastolic blood pressure 88 mm[Hg] Hilary Momo DO Work Phone: [facility] 01-30-2022 10:53-0500 Heart rate 95 /min Hilary Momo DO Work Phone: [facility] 01-30-2022 10:53-0500 SaO2% (BldA) [Mass fraction] 100 % Tiffin Momo DO Work Phone: [facility] 01-30-2022 10:53-0500 Systolic blood pressure 120 mm[Hg] Tiffin Momo DO Work Phone: [facility] Encounters Encounter Date Encounter Type Care Provider Facility Start: 08-14-2022 End: 08-14-2022 ambulatory FE MARC [facility] Start: 08-14-2022 End: 08-14-2022 Office outpatient new 45 minutes [place] Marc DO Work Phone: [facility] Comment on above: Moderate episode of recurrent major depressive disorder (HCC) (Primary Dx) Start: 02-27-2022 ambulatory Hilary Barr DO Work Phone: [employer] Start: 02-19-2022 End: 02-19-2022 ambulatory HILARY BARR Facility:[facility] Start: 02-19-2022 End: 02-19-2022 Patient encounter procedure Hilary Barr DO Work Phone: [facility] Comment on above: Anxiety with depress ion (Primary Dx); Type 1 diabetes mellitus with hyperglycemia, with long-term current use of insulin (HCC); Smoker; Restless leg syndrome Start: 02-06-2022 Telephone encounter Hilary Barr DO Work Phone: [facility] Comment on above: Results (Letter to b e mailed ) Start: 01-31-2022 Chart abstracting Hilary Barr DO Work Phone: [facility] Start: 01-30-2022 End: 01-31-2022 ambulatory HILARY BARR Facility:[facility] Start: 01-30-2022 End: 01-30-2022 Patient encounter procedure Hilary Barr DO Work Phone: [facility] Comment on above: Type 1 diabetes francis itus with hyperglycemia, with long-term current use of insulin (HCC) (Primary Dx); Anxiety with depression; Screening for hyperlipidemia; Screening for thyroid disorder Start: 08-07-2018 Patient encounter procedure [facility] Facility:[facility] Start: 04-30-2018 Patient encounter procedure GLYNN HAYS Facility:[facility] Start: 10-28-2017 End: 10-28-2017 Patient encounter procedure GLYNN HAYS Facility:[facility] Start: 10-16-2017 Patient encounter procedure GLYNN HAYS Facility:[facility] Start: 04-18-2017 End: 04-19-2017 Patient encounter procedure GLYNN HAYS Facility:[facility] Start: 04-18-2017 End: 04-18-2017 Patient encounter procedure GLYNN HAYS Facility:[facility] Procedures Date Procedure Procedure Detail Performing Clinician Start: 09-22-2021 Hemoglobin A1c/Hemoglobin.total in Blood Glynn Hays MD Work Phone: Plan of Treatment Date Care Activity Detail Author Start: 09-12-2037 Zoster Vaccines (1 of 2) Zoste r Vaccines (1 of 2) [facility] Start: 02-19-2023 ANNUAL PCP TEAM DRILL RUNNER TRINITY DISEASE VISIT ANNUAL PCP TEAM CHRONIC DISEASE VISIT [facility] Start: 02-13-2023 Depresssion Monitoring Depresssion M onitoring [facility] Start: 01-30-2023 ANNUAL PCP TEAM DRILL RUNNER TRINITY DISEASE VISIT ANNUAL PCP TEAM CHRONIC DISEASE VISIT [facility] Start: 01-30-2023 Hepatitis B surface antibody level LDL CHOLESTEROL [facility] Start: 11-09-2022 Influenza vaccination Influenz a Vaccine (Season Ended) [facility] Start: 2022 End: 2022 Telemedicine consultation with patient 2022 3:30 PM EDT Telemedicine [facility] [address] [place] [phone] Fe Marc DO [address] [place] [id number] [facility] Start: 03-25-2022 Hemoglobin A1c/Hemoglobin.total in Blood HBA1C [facility] Start: 02-27-2022 End: 04-29-2022 ALBUMIN/CREAT RATIO RND UR ALBUMIN/CREAT RATIO RND UR Lab Routine Type 1 diabetes mellitus with hyperglycemia, with long-term current use of insulin (HCC) Expected: 02/27/2022, Expires: 04/29/2022 [facility] Work Phone: Comment on above: Expected: 02/27/2022 , Expires: 04/29/2022 Start: 02-27-2022 End: 04-29-2022 Hemoglobin A1c in Blood HGB A1C Lab Routine Type 1 diabetes mellitus with hyperglycemia, with long-term current use of insulin (HCC) Expected: 02/27/2022, Expires: 04/29/2022 [facility] Work Phone: Comment on above: Expected: 02/27/2022 , Expires: 04/29/2022 Start: 02-27-2022 End: 04-29-2022 SCHEDULE LAB TESTING SCHEDULE LAB TESTING Lab Routine Expected: 02/27/2022, Expires: 04/29/2022 [facility] Work Phone: Comment on above: Expected: 02/27/2022 , Expires: 04/29/2022 Start: 11-09-2021 Influenza vaccination INFLUENZA (#1) [facility] Start: 03-11-2021 DEPRESSION ASSESSMENT DEPRESSION ASS ESSMENT [facility] Start: 01-02-2021 COVID-19 Vaccine (2 - Pfizer series) COVID-19 Vaccine (2 - Pfizer series) [facility] Start: 11-28-2020 COVID-19 VACCINE (2 - Pfizer series) COVID-19 VACCINE (2 - Pfizer series) [facility] Start: 11-07-2019 3 comp foot exam completed DIABETIC FOOT EXAM [facility] Start: 11-07-2019 Hepatitis C antibody , confirmatory test DILATED RETINAL EXAM [facility] Start: 04-18-2018 Hepatitis B screening URINE ALBUMIN:CREATININE RATIO [facility] Start: 02-07-2018 PNEUMOCOCCAL (2 - PCV) PNEUMOCOCCAL (2 - PCV) [facility] Start: 02-07-2018 Pneumococcal Vaccine : Pediatrics (0 to 5 Years) and At-Risk Patients (6 to 64 Years) (2 - PCV) Pneumococcal Vaccine: Pediatrics (0 to 5 Years) and At-Risk Patients (6 to 64 Years) (2 - PCV) [facility] Start: 03-12-2014 DTaP/Tdap/Td Vaccine s (6 - Tdap) DTaP/Tdap/Td Vaccines (6 - Tdap) [facility] Start: 03-12-2014 Urine microalbumin profile DTAP,TDAP,TD (6 - Tdap) [facility] Start: 09-12-2005 HEPATITIS C SCREENING HEPATITIS C [facility] Start: 09-12-2005 Hepatitis C screening Hepatitis C [facility] Start: 09-12-2005 HIV SCREENING HIV SCREENING [facility] Start: 10-07-2000 Varicella vaccination Varicell a Vaccines (1 of 2 - 2-dose childhood series) [facility] Start: 09-12-1997 Diabetic foot examination Diabetes: Foot Exam [facility] Start: 09-12-1997 Glaucoma screening Diabetes: R etinopathy Screening [facility] Start: 09-12-1997 Preventive dental service Diabetes: Dental Exam [facility] Start: 1987 Cyanocobalamin vitam in b-12 Vitamin B-12 [facility] Start: 1987 Hemoglobin A1c measurement Diabetes: Hemoglobin A1C [facility] Start: 1987 HIV screening HIV Screening [facility] Start: [address]id Panel [facility] Start: 1987 Thyroid stimulating hormone measurement TSH Level [facility] Immunizations Immunization Date Immunization Notes Care Provider Fa [facility] 02-07-2017 influenza, injectabl e, quadrivalent, preservative free Tiffin Momo DO Work Phone: [facility] 02-07-2017 pneumococcal polysaccharide vaccine, 23 valent Tiffin Momo DO Work Phone: [facility] 02-07-2017 influenza virus vacc ine, unspecified formulation Fe Marc DO Work Phone: [facility] 11-16-2014 influenza, seasonal, injectable, preservative free Tiffin Momo DO Work Phone: [facility] 03-11-2014 tetanus and diphther ia toxoids, adsorbed, preservative free, for adult use (2 Lf of tetanus toxoid and 2 Lf of diphtheria toxoid) Hilary Momo DO Work Phone: [facility] 01-21-2013 influenza, seasonal, injectable Tiffin Momo DO Work Phone: [facility] 11-16-2011 influenza, seasonal, injectable Hilary Momo DO Work Phone: [facility] 03-12-2001 hepatitis B vaccine, pediatric or pediatric/adolescent dosage Tiffin Momo DO Work Phone: [facility] 10-11-2000 hepatitis B vaccine, pediatric or pediatric/adolescent dosage Tiffin Momo DO Work Phone: [facility] 09-09-2000 hepatitis B vaccine, pediatric or pediatric/adolescent dosage Tiffin Momo DO Work Phone: [facility] 09-09-2000 measles, mumps and rubella virus vaccine Hilary Momo DO Work Phone: [facility] 10-04-1992 diphtheria, tetanus toxoids and acellular pertussis vaccine, unspecified formulation Hilary Momo DO Work Phone: [facility] 10-04-1992 trivalent poliovirus vaccine, live, oral Tiffin Momo DO Work Phone: [facility] 05-07-1989 haemophilus influenz ae type b vaccine, PRP-T conjugate Tiffin Momo DO Work Phone: [facility] 01-01-1989 diphtheria, tetanus toxoids and pertussis vaccine Hilary Momo DO Work Phone: [facility] 01-01-1989 measles, mumps and rubella virus vaccine Hilary Momo DO Work Phone: [facility] 01-01-1989 trivalent poliovirus vaccine, live, oral Tiffin Momo DO Work Phone: [facility] 04-03-1988 diphtheria, tetanus toxoids and pertussis vaccine Tiffin Momo DO Work Phone: [facility] 02-01-1988 diphtheria, tetanus toxoids and pertussis vaccine Tiffin Momo DO Work Phone: [facility] 02-01-1988 trivalent poliovirus vaccine, live, oral Tiffin Momo DO Work Phone: [facility] [facility] 1985 diphtheria, tetanus toxoids and pertussis vaccine Tiffin Momo DO Work Phone: [facility] 1985 trivalent poliovirus vaccine, live, oral Hilary Barr DO Work Phone: [facility] Payers Date Payer Category Payer Private Health Insurance [id number] 2021 Private Health Insurance [id number] 1985 Unknown [id number] 1987 Unknown [id number] [id number] 1987 Unknown [id number] 2.16.8 [id number] 1987 Unknown [id number] 2.16.8 [id number] 1987 Unknown [id number] 2.16.8 [id number] 1987 Unknown [id number] 2.16.8 [id number] Unknown [id number] Social History Date Type Detail Facility Start[facility] Start: 04-18-2001 History of tobacco use Cigarette Smo ker [facility] Start: 09-06-2021 End: 01-30-2022 Cigarettes smoked current (pack per day) - Reported 1.5 [facility] Start: 01-30-2022 Tobacco use and exposure Smoke less tobacco non-user [facility] Start: 01-30-2022 Alcohol intake Ex-drinker (finding) [facility] Start: 01-30-2022 Alcohol Comment sober since 2019 [facility] Start: 1985 Sex Assigned At Not on file [facility] Start: 01-20-2022 End: 08-14-2022 Exposure to SARS-CoV-2 (event) Not sure [facility] Start: 08-14-2022 Alcohol intake Lifetime non-d lisa (finding) [facility] Start: 09-06-2021 Tobacco use panel [facility] Medical Equipment Procedure Code Equipment Code Equipment Origin al Text Equipment Identifier Dates Start: 10-28-2017 End: 01-30-2022 Comment on above: Test 4 times daily 1 Each four times da bernie. USE ONE STRIP TO EVAN CK GLUCOSE 4 TIMES DAILY Clinical Notes 05-13-2020 to 08-14-2022 Fe Marc, DO - 08/14/2022 2:00 PM EDTFreekimberli Connor Momo, DO - 02/19/2022 3:11 PM ESTTelephone Encounter - Christine Garcia, MODEL [employer]KER PLASTER - 02/08/2022 10:02 AM EST Note Date & Type Note Facility 08-14-2022 History of Presen t illness Narrative Images from the original note were not included. [facility] [address] [place] [id number] Visit type: New Patient Reason for [...] seeing psych - lost insurance, started seeing Momo Started on prozac and wellbutrin Prozac was increased to 40 mg Then started on wellbutrin to help him quit smoking He is sleeping all of the time. Having nightmares. His says he is twitching in his sleep Works at [email or web address] Sold his house and moved in his [...] History: Diagnosis Date CHF (congestive heart failure) (CMS/HCC) ([facility]) Depression Social History Socioeconomic History Marital status: [...] 08/14/2022 3:44 PM documented in this encounter [facility] 02-27-2022 Note Patient Outreach (AG ACM) NYA MARQUEZ ([id number]) 1985 M Date Time Provider Department 02/27/22 HILARY BARR [facility] During your visit today, we recorded [...] Order(s):ALBUMIN/CREAT RATIO RND UR [SQUACR] Order #: [id number] FUTURE HGB A1C [[id number]] Order #: [id number] FUTURE SCHEDULE LAB TESTING [[id number]] Order #: [id number] FUTURE Prescriptions as of 03/02/2022 - buPROPion [...] scanning reader (FREESTYLE ADELAIDA 14 DAY READER) [facility] Use as directed - flash glucose sensor (FREESTYLE ADELAIDA 14 DAY SENSOR) kit Use every 2 weeks as instructed - blood sugar diagnostic (ONETOUCH VERIO) test strip Test 4 times daily - citalopram (CELEXA) 40 mg tablet Take 1 tablet by mouth once daily. - Insulin [place], Disposable, (BD ULTRA-FINE ALEKSANDRA PEN NEEDLE) 32 gauge x 5/32 ndle 1 Each four times daily. Problem List As Of Date 02/27/2022 Noted Resolved Type 1 diabetes mellitus with hyperglycemia, wi* Overweight (BMI 25.0-29.9) [E66.3] 10/28/2017 Anxiety with depression [F41.8] 02/07/2022 Encounter Status:Closed by MARLA KING on 03/02/22 [facility] 02-19-2022 Note HNO ID: [id number] Author: Hilary Barr DO Service: ? Author Type: Physician Type: Progress Notes Filed: 03/07/2022 6:21 PM Note Text: [facility] Nabb Hilary Barr DO [address] [place] [address] Date of Evaluation: 02/19/2022 Patient Name: Nya Marquez : 1985 Chief Complaint: Patient presents with: Results: Blood work Anxiety: Follow up after taking prozac Nursing Intake: There are no exam notes on file for this visit. Subjective Mr. Marquez is a 36 year old male who presents with the following complaint(s): The history is provided by the patient. No conference interpreter was used. Anxiety Pertinent negatives include no [...] No sig reported) 90 tablet 2 Insulin [place], Disposable, (BD ULTRA-FINE ALEKSANDRA PEN NEEDLE) 32 [...] thyromegaly or thyroid (more content not included)... [facility] 02-19-2022 History of Presen t illness Narrative Images from the original note were not included. [facility] Nabb Tiffin Momo [address] [place] [address] Date of Evaluation: 02/19/2022 Patient Name: Nya Marquez : 1985 Chief Complaint: Patient presents with: Results: Blood work Anxiety: Follow up after taking prozac Nursing Intake: There are no exam notes on file for this visit. Subjective Mr. Marquez is a 36 year old male who presents with the following complaint(s): The history is provided by the patient. No conference interpreter was used. Anxiety Pertinent negatives include no [...] No sig reported) 90 tablet 2 Insulin [place], Disposable, (BD ULTRA-FINE ALEKSANDRA PEN NEEDLE) 32 [...] 2022 3:38 PM. documented in this encounter [facility] 02-08-2022 Miscellaneous Notes Formattin g of [...] diary 7-10 days documented in this encounter [facility] 01-30-2022 Note HNO ID: [id number] Author: Hilary Barr DO Service: ? Author Type: Physician Type: Progress Notes Filed: 02/07/2022 6:16 PM Note Text: [facility] Nabbgabriela Barr DO [address] [place] [address] Date of Evaluation: 01/30/2022 Patient Name: Nya Marquez : 1985 Chief Complaint: Patient presents with: Depression Anxiety New Patient review depression screening Nursing Intake: There are no exam notes on file for this visit. Subjective Mr. Marquez is a 36 year old male who presents with the following complaint(s): The history is provided by the patient. No conference interpreter was used. Depression Pertinent negatives include no [...] No sig reported) 90 tablet 2 Insulin [place], Disposable, (BD ULTRA-FINE ALEKSANDRA PEN NEEDLE) 32 [...] Gaze aligned appr (more content not included)... [facility] 01-30-2022 History of Presen t illness Narrative Images from the original note were not included. [facility] [address] [place] [address] Date of Evaluation: 01/30/2022 Patient Name: Nya Marquez : 1985 Chief Complaint: Patient presents with: Depression Anxiety New Patient review depression screening Nursing Intake: There are no exam notes on file for this visit. Subjective Mr. Marquez is a 36 year old male who presents with the following complaint(s): The history is provided by the patient. No conference interpreter was used. Depression Pertinent negatives include no [...] No sig reported) 90 tablet 2 Insulin [place], Disposable, (BD ULTRA-FINE ALEKSANDRA PEN NEEDLE) 32 [...] January 30, 2022 11:15 AM. Physician Statement: I, Hilary Barr DO, personally performed the services described in the documentation, as scribed by Jamee Dorsey in my presence, and it is both accurate and complete January 30, 2022 11:36 AM. documented in this encounter [facility] 05-13-2020 Note Patient Outreach ([place] VAMN) NYA MARQUEZ ([id number]) 1985 M Date Time Provider Department 05/13/20 SALOMON JENKINS During your visit today, we recorded the following information about you: Allergies As of Date: 05/13/2020 (No Known Allergies) Date Reviewed: 11/06/2018 Reviewed by: Marian Schwartz - Fully Assessed Order(s):SARS-COVID VACCINE 1ST DOSE APPT [[id number]] Order #: [id number] FUTURE Prescriptions as of 05/13/2020 Sig: INSULIN [...] (BMI 25.0-29.9) [E66.3] 10/28/2017 Encounter Status:Closed by [employer] M:MetricsLEONILA on 05/16/20 [facility] Evaluation note Diagnosis Type 1 diabetes mellitus with hyperglycemia, with long-term current use of insulin (HCC)- Primary Anxiety with depression Screening for hyperlipidemia Screening for lipoid disorders Screening for thyroid disorder documented [facility] this encounter [facility] Diagnosis Type 1 diabetes mellitus with hyperglycemia, with long-term current use of insulin (HCC) documented [facility] this encounter [facility]* Diagnosis Anxiety with depression- Primary Type 1 diabetes mellitus with hyperglycemia, with long-term current use of insulin (HCC) Smoker Tobacco use disorder Restless leg syndrome Restless legs syndrome (RLS) documented [facility] encounter [facility] Diagnosis Moderate episode of recurrent major depressive disorder (HCC)- Primary documented in this encounter [facility] Summary Purpose Family History No Family History Records [...] ized section and content) DATE CREATED AUTHOR [facility]/17/2018 [facility] DATE CREATED AUTHOR AUTHOR'S ORGANIZ ATION 10/17/[address] [facility] ([place]) DATE CREATED AUTHOR AUTHOR'S ORGANIZ ATION 04/12/2021 [facility] DATE CREATED AUTHOR AUTHOR'S ORGANIZ ATION 09/07/2021 [facility] DATE CREATED AUTHOR AUTHOR'S ORGANIZ ATION 03/08/2022 [facility] DATE CREATED AUTHOR AUTHOR'S ORGANIZ ATION 08/19/2022 [facility] Source Comments (unrecognize d section and content) In the event this informatio n is protected by the Federal Confidentiality of Alcohol and Drug Abuse Patient Records regulations: The Federal rules restrict any use of the information to criminally investigate or prosecute any alcohol or drug abuse patient.[facility] the event this information is protected by the Federal Confidentiality of Alcohol and Drug Abuse Patient Records regulations: The Federal rules restrict any use of the information to criminally investigate or prosecute any alcohol or drug abuse patient.[facility] the event this information is protected by the Federal Confidentiality of Alcohol and Drug Abuse Patient Records regulations: The Federal rules restrict any use of the information to criminally investigate or prosecute any alcohol or drug abuse patient.[facility] the event this information is protected by the Federal Confidentiality of Alcohol and Drug Abuse Patient Records regulations: The Federal rules restrict any use of the information to criminally investigate or prosecute any alcohol or drug abuse patient.[facility] the event this information is protected by the Federal Confidentiality of Alcohol and Drug Abuse Patient Records regulations: The Federal rules restrict any use of the information to criminally investigate or prosecute any alcohol or drug abuse patient.[facility] Care Teams (unrecognized sec tion and content) Associate Financial Analyst Relationship Specialty Start Date End Date Hilary Barr, [address] [place] [address] PCP - General Family Medicine 01/30/22 Associate Financial Analyst Relationship Specialty Start Date End Date Hilary Barr, [address] [place] [id number] PCP - General Family Medicine 01/30/22 Associate Financial Analyst Relationship Specialty Start Date End Date Hilary Barr, [address] [place] [id number] PCP - General Family Medicine 01/30/22 Associate Financial Analyst Relationship Specialty Start Date End Date Hilary Barr, [address] [place] [id number] PCP - General Family Medicine 01/30/22 Associate Financial Analyst Relationship Specialty Start Date End Date Hilary Barr, [address] [address] PCP - General Family Medicine 01/30/22 Associate Financial Analyst Relationship Specialty Start Date End Date Fe Marc DO [address] [place] [address] PCP - General Internal Medicine 08/14/22 Reason for Visit (unrecogniz ed section and content) Reason Comments Depression Anxiety New Patient review depression screening Reason Comments Results Letter to be mailed Reason Comments Results Blood work Anxiety Follow up after taki ng prozac Reason Comments Annual Exam Pt very upset with caryn rhodes pcp for giving to many meds for [...] BE BASED ON THE PRIMARY CLINICAL RECORDS. [facility]. provides no warranty or guarantee of the accuracy or completeness of information in this document.
== END | disposition home or self-care (01) ==
LOC: LAB 15:51
PROVIDERS: Referring Provider Internal Medicine Endocrinology, Diabetes & Metabolism; Visit Provider Internal Medicine Endocrinology, Diabetes & Metabolism
DX: E10.65 Type 1 diabetes mellitus with hyperglycemia (principal); Z96.41 Presence of insulin pump (external) (internal)
CPT/HCPCS: 36415; 80053; 80061; 82043; 82570; 84443